=== PATIENT | female | born 2000 | race Caucasian/White ===

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

== ENCOUNTER 2022-12-23 15:14 | Outpatient (CLI) | payer OTHER, SELFPAY ==
[2022-12-25 13:02] LABS: NIL 0.03 IU/mL; Quantiferon TB Plus, 1T NEGATIVE (NEGATIVE); TB1-NIL <0.00 IU/mL
== END 2022-12-23 15:15 | disposition home or self-care (01) ==
LOC: ANHLAB 15:16
PROVIDERS: PCP Family Medicine; Visit Provider Nurse Practitioner Family
DX: Z11.1 Encounter for screening for respiratory tuberculosis (principal)
CPT/HCPCS: 36415; 86480

== ENCOUNTER 2023-01-29 19:59 | Emergency (ER) | payer OTHER, SELFPAY ==
--- NOTE | ~2023-01-29 | XR_ITS ---
EXAMINATION: XR ankle LT min 3V DATE: 01/29/2023 20:11 INDICATION: Left ankle inversion injury TECHNIQUE: Anteroposterior, oblique, mortise, and lateral views of the left ankle were obtained. COMPARISON: None. FINDINGS: Alignment is normal. No fracture. Joint spaces are well maintained. No ankle joint effusion. Mild s oft tissue swelling about the lateral malleolus IMPRESSION: 1. No osseous abnormality. Reviewed, dictated and finalized at location A. IMPRESSION: 1. No osseous abnormality.
[2023-01-29 20:03] VITALS: BP 153/85; PULSE 86; RESP 16; TEMP 36.6; O2SAT 100
--- NOTE | 2023-01-29 20:08 | ED.LOWEXIN ---
HPI - Extremity Injury (Lower) General Chief Complaint: Extremity Injury, Lower Stated Complaint: Left Ankle Injury Time Seen by Provider: 01/29/23 20:08 Source: patient, RN notes reviewed and old records reviewed Mode of arrival: ambulatory Limitations: no limitations History of Present Illness HPI Narrative: 22 year old female accompanied by friend presents to [facility] care at 1957 with complaints of exercising today at 1400 and rolled her ankle outward and she felt a snap in her ankle. Patient reports that she has applied an justin wrap and taken Ibuprofen but continues to have pain to ankle and increased discomfort with ambulation. Patient is concerned she is scheduled to work tomorrow and doesn't known if she could of broken something in he ankle MD complaint: ankle injury (lateral malleolus) Onset (ago): hour(s) (today at 1400) Type of Injury: inversion Place: home Severity: moderate Severity scale (1-10): 6 Exacerbating factors: weight bearing and movement Associated symptoms: snap/pop sensation, swelling and able to partially bear weight Treatments prior to arrival: cold therapy and other (justin and Ibuprofen) Related Data Home Medications Medication Instructions Recorded Confirmed No Home Medications 05/30/21 01/29/23 Allergies Allergy/AdvReac Type Severity Reaction Status Date / Time No Known Allergies Allergy Verified 01/29/23 20:08 Review of Systems Review of Systems: CONSTITUTIONAL: Denies fever, chills, or sweats. EYES: Denies visual changes, redness, or discharge. ENT: Denies rhinorrhea, congestion, sore throat, or otalgia. CARDIOVASCULAR: Denies chest pain, palpitations, or edema. RESPIRATORY: Denies cough or dyspnea. GASTROINTESTINAL: Denies abdominal pain, nausea, vomiting, or diarrhea. GENITOURINARY: Denies dysuria or hematuria. SKIN: Denies rash or itching. MUSCULOSKELETAL: Denies back pain,Positive for left lateral ankle joint pain, or myalgia. NEUROLOGIC: Denies headache, numbness, or weakness. PSYCHIATRIC: positive for anxiety or depression. All systems reviewed & are unremarkable except as noted in HPI and below PMFSH Past Medical History Medical History (Updated 01/30/23 @ 00:00 by Alexis Hughes) Anxiety Strep pharyngitis Surgical History Surgical History (Updated 01/29/23 @ 20:19 by Rachele Carranza NP) [place] teeth extracted Social History Social History (Updated 01/29/23 @ 20:20 by Rachele Carranza NP) Smoking status: Never smoker Occupation/Education: student Gender identity (if verbalized by the patient): Female Comments At time of signature, agree with nursing past medical, surgical, social and family history. There is no relevant family history pertinent to the presenting complaint Exam Narrative: GENERAL: Well-appearing, well-nourished, and in no acute distress. HEAD: Normocephalic, atraumatic. EYES: PERRLA and EOMI. ENT: Nares clear, no rhinorrhea or epistaxis. Mucous membranes moist. NECK: Supple. no lymphadenopathy CHEST: Clear to auscultation. No respiratory distress SAO2 100% on room air HEART: Regular rate and rhythm. No murmur heard. Normal peripheral pulses. ABDOMEN: Soft, nontender, nondistended, normal active bowel sounds. EXTREMITIES: Normal range of motion with discomfort with some lateral left ankle edema.painful ambulation and weight bearing. Patient has strong left pedal pulse, reports no tingling or numbness to her left foot, nail beds demetri briskly, foot warm and pink SKIN: Warm, dry, no rash. NEURO: No focal deficits. Alert and oriented x3. Course Course Emergency Course: Patient is aware of diagnosis, understands and agrees to treatment plan.? Anticipatory guidance given.? Patient agrees to follow-up as directed and is aware of reasons to seek care at the emergency department. Portions of this record may have been created with voice recognition software Level of Care: Express Care Visit Vital Signs Vital signs: Vital
== END 2023-01-29 20:26 | disposition home or self-care (01) ==
PROVIDERS: Emergency Provider Registered Nurse; PCP Family Medicine
DX: S93.402A Sprain of unspecified ligament of left ankle, initial encounter (principal); S96.912A Strain of unspecified muscle and tendon at ankle and foot level, left foot, initial encounter; X50.9XXA Other and unspecified overexertion or strenuous movements or postures, initial encounter
CPT/HCPCS: 73610; 99213; G0463

== ENCOUNTER 2024-07-03 17:40 | Emergency (ER) | payer OTHER, SELFPAY ==
[2024-07-03 18:45] VITALS: BP 111/84; PULSE 97; RESP 20; TEMP 37.4; O2SAT 100
--- NOTE | 2024-07-03 19:26 | ED.URI ---
HPI - URI/Sore Throat General Chief Complaint: Upper Respiratory Infection Stated Complaint: Flu Symptoms Source: patient, RN notes reviewed and old records reviewed Mode of arrival: ambulatory Limitations: no limitations History of Present Illness HPI Narrative: 24 year old female who presents to [facility] care with complaints of 3-4 days fatigue 2 days of productive cough,sore throat neck is swollen in the right posterior area and sore with no known fevers. Patient reports that she has been taking Tylenol cold and flu for her symptoms. 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 Patient reports history of strep throat. MD elicited complaint: cough and sore throat Pertinent past history: other (history of strep throat) Onset (ago): day(s) (2) Severity: mild Able to tolerate fluids by mouth: Yes Treatments prior to arrival: other (Tylenol cold and flu) Related Data Home Medications ?Medication ?Instructions ?Recorded ?Confirmed ?Last Taken ?Type citalopram 20 mg tablet 20 mg PO DAILY 07/03/24 07/03/24 Unknown History Allergies Allergy/AdvReac Type Severity Reaction Status Date / Time No Known Allergies Allergy Verified 07/03/24 18:17 Review of Systems Review of Systems: CONSTITUTIONAL: Reports some malaise, no chills, sweats, or fever. EYES: Denies visual changes, redness, or discharge. ENT: Reports rhinorrhea, congestion,no sinus pain, no otalgia and positive for sore throat. CARDIOVASCULAR: Denies chest pain, palpitations, or edema. RESPIRATORY: Reports productive cough.? Denies dyspnea. GASTROINTESTINAL: Denies abdominal pain, nausea, vomiting, diarrhea SKIN: Denies rash or itching. MUSCULOSKELETAL: Denies myalgia. NEUROLOGIC: Denies headache. All systems reviewed & are unremarkable except as noted in HPI and below PMFSH Past Medical History Medical History (Updated 07/05/24 @ 07:59 by Rachele Carranza NP) Anxiety Strep pharyngitis Surgical History Surgical History (Updated 01/29/23 @ 20:19 by Rachele Carranza NP) [place] teeth extracted Social History Social History (Updated 07/05/24 @ 07:52 by Rachele Carranza NP) Smoking status: Never smoker Additional occupation/education comments: RN Gender identity (if verbalized by the patient): Female Comments At time of signature, agree with nursing past medical, surgical, social and family history. There is no relevant family history pertinent to the presenting complaint Exam Narrative: GENERAL: Well-appearing, well-nourished, and in no acute distress. HEAD: Normocephalic EYES: PERRLA, conjunctivae clear ENT: Nares clear, turbinates edematous and erythematous, clear discharge. Mucous membranes moist. TM pearly munoz with dull light reflex bilaterally; no tragal tenderness. Oropharynx erythematous without lesions. Tonsils red not enlarged and without exudate, no drooling, no hoarseness, no trismus, uvula midline.some post nasal drainage noted, swollen lymph node to posterior neck region with some tenderness NECK: Supple. right posterior lymph node lymphadenopathy CHEST: Clear to auscultation, breath sounds equal. No wheezing, rhonchi, rales, or stridor. No respiratory distress, speaks in full sentences.productive cough SAO2 100% on room air HEART: Regular rate and rhythm. No murmur heard. SKIN: Warm, dry, no rash. NEURO: Alert and oriented x3. PSYCH: Normal mood and affect Course Course Emergency Course: Patient is aware of diagnosis, understands and agrees to treatment plan.? Anticipatory guidance given.? Patient agrees to follow-up as directed and is aware of reasons to seek care at the emergency department. Portions of this record may have been created with voice recognition software Level of Care: Express Care Visit Vital Signs Vital signs: Vital Signs Temperature 37.4 C 07/03/24 18:45 Pulse Rate 97 07/03/24 18:45 Respiratory Rate 20 07/03/24 18:45 Blood Pressure 111/84 07/03/24 18:45 Pulse Oximetry 100 07/03/24 18:45 Temperature 37.4 C 07/03/24 18:45 Pulse Rate 97 07/03/24 18:45 Respiratory Rate 20 07/03/24 18:45 Blood Pressure 111/84 07/03/24 18:45 Pulse Oximetry 100 07/03/24 18:45 Reviewed MDM - URI/Sore Throat MDM Narrative Medical decision making narrative: Differential diagnosis considered: Arreaga virus, strep pharyngitis, allergic rhinitis, upper respiratory tract infection, sinusitis, rhinosinusitis, nasopharyngitis. viral pharyngitis, otitis media, otitis externa, pneumonia, bronchitis, viral cough syndrome, viral syndrome, and influenza.? Exam findings show no acute concerns or changes; patient is non-toxic appearing and is in no distress.? Patient is appropriate for outpatient treatment and follow-up. Differential Diagnosis Differential diagnosis: Likely upper respiratory infection, viral infection, influenza, pharyngitis and other (strep pharyngitis, COVID, mono) Medical Records Attestation: I reviewed the patient's medical records. Lab Data Attestation: I reviewed the patient's lab results. Lab results narrative: [place] screen negative, Influenza A negative, Influenza B negative, COVID antigen negative,strep screen negative, strep culture sent Labs: Lab Results 07/03/24 07/03/24 Range/Units 19:42 19:55 POC Monoscreen Negative (Negative) POC Influenza A Ag Negative (Negative) POC Influenza B Ag Negative (Negative) POC SARS CoV-2 Ag Negative (Negative) POC Grp A Strep Screen Negative (Negative) Critical Care Time Critical Care Time Critical Care Time: No Discharge Plan Discharge Clinical Impression: Cough Qualifiers: Cough type: acute Qualified Code(s): R05.1 - Acute cough Upper respiratory infection Qualifiers: URI type: unspecified URI Qualified Code(s): J06.9 - Acute upper respiratory infection, unspecified Patient Disposition: Home, Self-Care Condition: Stable Instructions: Upper Respiratory Infection (ED), Acute Cough (ED) Additional Instructions: Increase fluids especially juices and water [id number] cough and cold medicine of your choice for your symptoms Zyrtec Claritin or Ana María daily may use plain Sudafed in a.m. Cough tablets as directed for cough-- Tylenol or ibuprofen for any fever pain Steroids as directed--take with food heat to the face 20-30 minutes 4-6 times a day for pain Salt water gargles, throat lozenges or throat sprays as desired strep mono flu and COVID all tested negative strep culture sent Patient Language: Hungarian Prescriptions: New prednisone 20 mg tablet 20 mg PO BID Qty: 10 0RF No Action citalopram 20 mg tablet 20 mg PO DAILY Follow-up/Referrals: PHYSICIAN,TRACK LAYER [Primary Care Provider] - Time of Disposition: 20:11 Quality [place] Coma Scale Eyes: Open Verbal: Oriented and Alert Motor: Follows Commands [place] Coma Total Score: 15
[2024-07-03 19:44] LABS: EDCOVIDSCREEN Negative (Negative); EDINFLUASCREEN Negative (Negative); EDINFLUBSCREEN Negative (Negative)
[2024-07-03 19:57] LABS: EDMONONEGPOS Negative (Negative); EDSTREPNEGPOS1 Negative (Negative)
== END 2024-07-03 20:13 | disposition home or self-care (01) ==
PROVIDERS: Emergency Provider Registered Nurse
DX: R05.1 Acute cough (principal); J06.9 Acute upper respiratory infection, unspecified; Z20.822 Contact with and (suspected) exposure to COVID-19; F41.9 Anxiety disorder, unspecified
CPT/HCPCS: 36416; 86308; 87081; 87426; 87804; 87880; 99213; G0463

== ENCOUNTER 2024-07-25 11:33 | Outpatient (CLI) | payer OTHER, SELFPAY | END 2024-07-25 11:34 | disposition home or self-care (01) | LOC: ANHIMG 11:34 | PROVIDERS: PCP Family Medicine; Visit Provider Nurse Practitioner Family | DX: M51.379 Other intervertebral disc degeneration, lumbosacral region without mention of lumbar back pain or lower extremity pain (principal) | CPT/HCPCS: 72114 ==

== ENCOUNTER 2024-08-29 13:37 | Emergency (ER) | payer OTHER, SELFPAY ==
--- NOTE | ~2024-08-29 | XR_ITS ---
XR hand LT 2V Ordering provider: Marquis Lozano MD History: . injury . Comparison: None. FINDINGS: BONES: No acute fracture or dislocation. JOINT SPACES: Well maintained. SOFT TISSUES: Unremarkable. IMPRESSION: No acute osseous abnormality left hand. Reviewed, dictated and finalized at location A.
[2024-08-29 13:40] VITALS: BP 135/75; PULSE 70; RESP 20; TEMP 36.3; O2SAT 100
--- NOTE | 2024-08-29 14:25 | ED.UPPEXIN ---
HPI - Extremity Injury (Upper) General Chief Complaint: Extremity Injury, Upper Stated Complaint: LEFT HAND INJURY Time Seen by Provider: 08/29/24 14:25 Focused HPI: This is a 24 year old female that presents to the ER for an injury to the left hand. Reports she was wheeling a stretcher and her hand got caught between the stretcher and the baby warmer. This happened just prior to arrival. GENERAL: Well-appearing, well-nourished, and in no acute distress. HEAD: Normocephalic, atraumatic. CHEST: Clear to auscultation. ?No respiratory distress. HEART: Regular rate and rhythm.? NEURO: ?Alert and oriented x3. Patient screened in triage and initial orders placed.? ?Additional care and disposition to be based upon?diagnostic testing and treatment. Related Data Allergies Allergy/AdvReac Type Severity Reaction Status Date / Time No Known Allergies Allergy Verified 08/29/24 13:43 Review of Systems Review of Systems: All systems reviewed & are unremarkable except as noted in HPI and below PMFSH Past Medical History Medical History (Updated 08/29/24 @ 14:30 by Melania To PA-C) Encounter for adjustment and management of other implanted devices Encounter for surveillance of other contraceptives Anxiety Strep pharyngitis Surgical History Surgical History [place] teeth extracted Family History Family History Mother Depression Father Depression Hypertension Grandparent Hypertension Heart disease Diabetes mellitus Social History Social History Smoking status: Never smoker Alcohol intake: never Substance use: never Substance use type: does not use Do You Feel Safe in your Home?: Yes Lack of Transportation: No Lack of Food: Never True Current Housing: I Have Housing Concerned About Future Housing: No Difficulty Paying Gas/Electric Bills: No Difficulty Paying for Meds: No Currently Unemployed: No Education: Associate Degree Difficulty w/ Childcare or Family Care: No Additional occupation/education comments: RN Gender identity (if verbalized by the patient): Female Exam Const: General: healthy appearing and no acute distress Nutritional Appearance: well nourished Skin: General skin exam: normal color Wounds: wounds noted (small superficial abrasions between the left 3rd and 4th fingers) Neuro: General: moves all extremities and no focal motor deficits Extrem: General: edema (mild swelling about the left 3rd and 4rd MCP joints. normal radial pulse) Other: normal sensation Course Vital Signs Vital signs: Vital Signs Temperature 97.3 F L 08/29/24 13:40 Pulse Rate 70 08/29/24 13:40 Respiratory Rate 20 08/29/24 13:40 Blood Pressure 135/75 08/29/24 13:40 Pulse Oximetry 100 08/29/24 13:40 Oxygen Delivery Room Air 08/29/24 13:40 Temperature 97.3 F L 08/29/24 13:40 Pulse Rate 70 08/29/24 13:40 Respiratory Rate 20 08/29/24 13:40 Blood Pressure 135/75 08/29/24 13:40 Pulse Oximetry 100 08/29/24 13:40 Oxygen Delivery Room Air 08/29/24 13:40 MDM - Extremity Injury (Upper) MDM Narrative Medical decision making narrative: Patient presents to the ER after left hand injury. She is neurovascularly intact. Left hand x-ray without acute osseous abnormalities. Very small superficial abrasions. Band aid in place. Instructed to ice, elevate. Over the counter pain medication as needed. She is to follow up with PCP. She was given warnings to return to the ER Differential Diagnosis Differential diagnosis: Likely finger sprain and other (dislocation, contusion) Imaging Data Radiologist's impression: ITS Impressions Hand X-Ray 08/29/24 14:06 IMPRESSION: No acute osseous abnormality left hand. Critical Care Time Critical Care Time Critical Care Time: No Discharge Plan Discharge Clinical Impression: Contusion of left hand Qualifiers: Encounter type: initial encounter Qualified Code(s): S60.222A - Contusion of left hand, initial encounter Patient Disposition: Home Condition: Stable Instructions: Contusion in Adults (ED) Additional Instructions: Return to the ER if you experience fever, redness and swelling of your arm, weakness, numbness, or any other symptoms that are concerning to you Rest. Elevate. Ice to the area. Over the counter pain medication as needed Follow up with your primary care doctor Patient Language: Canadian Follow-up/Referrals: Brian Somers MD [Primary Care Provider] -
--- OUTSIDE RECORDS SUMMARY | 2024-08-29 15:00 | XMS_ITS | Clinical Summary ---
Author Organization [facility] Address [address] [place] [address] Care Team Providers Care Rehab Care Assistant Name Role Phone Marisol Bradley MD Primary Care Provider [phone] Source Comments [facility],non-owned Affiliates and Associated Physician Practices is amultiple site organization consisting of ambulatory clinics and hospital sitesin [place], [place], [place] and [place]. This disclosure is being madepursuant to the Care Everywhere program and may not contain all information available regarding this patient. Last updated 18.[facility] Allergies No known active allergies Medications Be aware that medications may not be up to date on this document. Always verify current medications with the patient. No known medications Social History Tobacco Use Types Packs/Day Years Used Date Smoking Tobacco: Never Assessed Sex and Gender Information Value Date Recorded Sex Assigned at Not on file Gender Identity Not on file Sexual Orientation Not on file Last Filed Vital Signs Vital Sign Reading Time Taken Comments Blood Pressure 106/60 08/03/2016 11:41 AM CDT Pulse 105 08/03/2016 11:41 AM CDT Temperature 37.3 C (99.2 F) 08/03/2016 11:41 AM CDT Respiratory Rate - - Oxygen Saturation - - Inhaled Oxygen Concentration - - Weight 49.9 kg (110 lb) 08/03/2016 11:41 AM CDT Height 163.8 cm (5' 4.5 ) 08/03/2016 11:41 AM CD T Body Mass Index 18.59 08/03/2016 11:41 AM CDT Plan of Treatment Health Maintenance Due Date Last Done Comments PAP SMEAR 2002 HIV SCREENING 2017 HPV VACCINE (1 - 3-dose series) 2017 CHLAMYDIA/GONORRHEA SCREENING 2018 MENINGOCOCCAL (Group B) VACC INE SHARED DECISION-MAKING (1 of 2 - Standard) 2018 HEPATITIS C SCREENING 03/31/2020 DTAP/TDAP/TD VACCINES (1 - Tdap) 2021 HEPATITIS B VACCINE (1 of 3 - 19+ 3-dose series) 2021 COVID-19 VACCINE (1 - 2023-2 5 season) 2024 DEPRESSION SCREENING 05/24/2024 INFLUENZA VACCINE (Season Ended) 2025 ZOSTER VACCINE (1 of 2) 2052 HIB VACCINE Aged Out No longer eligi ble based on patient's age to complete this topic MENINGOCOCCAL GROUPS A/C/Y/W VACCINE Aged Out No longer eligible b ased on patient's age to complete this topic PNEUMOCOCCAL VACCINE Aged Out No long er eligible based on patient's age to complete this topic Care Teams Rehab Care Assistant Relationship Specialty Start Date End Date Marisol Bradley MD [address] [id number] PCP - General Pediatrics 08/03/16
--- OUTSIDE RECORDS SUMMARY | 2024-08-29 15:00 | XMS_ITS | Referral Summary ---
Author Organization [facility] [address] [facility] lt Address [address] [place] [address] Care Team Providers Care Client Resolution Specialist Name Role Phone Reynaldo Carlson MD Primary Care Provider [phone] Encounters Date Type Department Care Team Description 07/18/2024 1:56 PM ASSISTANT PROFESSOR OF ENGLISH - 07/18/2024 11:59 PM ASSISTANT PROFESSOR OF ENGLISH Hospital Encounter [facility] [address] [place] [address] Low back pain, unspecified back pain laterality, unspecified chronicity, unspecified whether sciatica present Discharge Disposition: Discharge to home or self care from Last 3 Months Allergies No known active allergies Medications etonogestreL (NEXPLANON) 68 mg implantIndications : Contraception 1 each (68 mg total) Nexplanon inserted 05-14-2021. Paid by insurance. Lot # [id number] exp 08-31-2023 Active citalopram (CeleXA) 20 mg tablet Take 1 tablet (20 mg total) by mouth daily 90 tablet 4 4 02/24/20 25 Active miSOPROStoL (CYTOTEC) 200 mcg tablet Insert 1 tablet vaginally at bedtime two nights prior to procedure. Insert second tablet tablet vaginally the night before procedure 2 tablet 4 Active Active Problems Problem Noted Date Diagnosed Date Contraceptive management 03/14/2024 Assessment & Plan (03/14/2024 7:16 AM CDT): Discussed all control options available to patient at visit. Patient was counseled on benefits as well as side effects and risks of each method. 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 Device is due to in April of this year. She is interested in a hormonal IUD. Literature on the Liletta and Kyleena IUD given. Plan to order device after results of pelvic ultrasound reviewed. Breakthrough bleeding on Nexplanon 03/14/2024 Overview (03/14/2024): Continues to be problematic. Desires to have Nexplanon removed and start a new BCM at that time. Will call patient to schedule an upcoming appt for removal. Assessment & Plan (03/14/2024 7:20 AM CDT): Continues to be problematic. She is not interested in oral hormones to help regulated BTB at this time. Informed patient her most recent episode of irregular bleeding may or may not be related to the presence of an ovarian cyst. Regardless, patient desires to have Nexplanon removed and start a new BCM at that time. Will call patient to schedule an upcoming appointment for removal. Physical exam, annual 02/24/2024 Assessment & Plan (02/24/2024 11:29 AM CDT): Preventive exam; reviewed recommended preventive screenings and vaccinations. Encourage annual flu vaccine. Wear sunscreen/protective clothing when outdoors. 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 Will increase citalopram from 10 mg to 20 mg daily. No SI. Encouraged CBT and stress lowering technique. Will monitor response. Pyelonephritis 02/24/2024 Assessment & Plan (02/24/2024 11:29 AM CDT): Symptoms improving. Patient is taking medication twice daily as prescribed, has 1 week left of Keflex. Received IV Rocephin in the ED on 02/20. She denies any fevers, chills or nausea. Urinary symptoms have resolved. Constipation 02/24/2024 Assessment & Plan (02/24/2024 11:30 AM CDT): Took MiraLax x3 days. Encouraged daily use of MiraLax for now. Continue pushing fluids. Can take extra-strength Gas-X for bloating/gas cramping. Encouraged adequate fiber intake aim for 25 g of fiber/day, recommend gradually increasing fiber intake. Well woman exam 06/24/2022 Overview (06/24/2022): Lab: Pap: No recent labs. Clara: Colonoscopy: BMD: Gardasil:chart says 05/26, she will check her vaccine card. Assessment & Plan (06/24/2022 2:59 PM ASSISTANT PROFESSOR OF ENGLISH): Declines STD rto next year for complete exam. BMI 23.0-23.9, adult 01/15/2021 Assessment & Plan (02/24/2024 11:30 AM CDT): BMI is appropriate for patient Assessment & Plan (01/15/2021 12:25 PM CDT): Discussed healthy diet and importance of regular physical activity. BMI is acceptable for this patient. control counseling 01/14/2021 Overview (05/14/2021): nexplanon 04/2021 Due out 04/2024 Assessment & Plan (06/24/2022 2:56 PM ASSISTANT PROFESSOR OF ENGLISH): Some irregular bleeding Will follow. Assessment & Plan (06/19/2021 1:18 PM ASSISTANT PROFESSOR OF ENGLISH): Arm is well healed She will follow the bleeding for another week or so and call me with the results. Assessment & Plan (05/14/2021 12:08 PM ASSISTANT PROFESSOR OF ENGLISH): The patient comes today desiring contraception. The options were discussed with her including risks benefits and alternatives. The patient would like to have Nexplanon placed. We discussed that the Nexplanon is good for 3 years and after that will need to be removed. We discussed the most common side effect is irregular bleeding lasting for approximately 4-6 months. During that time there is additional treatment that is available to help with the bleeding. The patient was encouraged to call if she has any irregular bleeding. Patient voices understanding and agrees to the procedure. The nexplanon was placed without difficulty. She will be asked to return to the office in 2 weeks for arm check. Assessment & Plan (03/03/2021 2:19 PM CDT): The patient comes today desiring contraception. The options were discussed with her including risks benefits and alternatives. The patient would like to have Nexplanon placed. We discussed that the Nexplanon is good for 3 years and after that will need to be removed. We discussed the most common side effect is irregular bleeding lasting for approximately 4-6 months. During that time there is additional treatment that is available to help with the bleeding. The patient was encouraged to call if she has any irregular bleeding. She was asked to call in 2 weeks if she has not heard from us about placement. I would like to put it in on the first day of her period Assessment & Plan (01/15/2021 12:21 PM CDT): Patient prefers IUD contraception. Discussed various differences in IUD hormonal vs. Copper. Patient with heavy periods and would likely do well with hormonal IUD. Aware that IUD does not protect against STD's. Given referral today to SHEET METAL HELPER. LMP 01/12/21, will restart OCP in the interim. Need for meningococcal vaccination 08/01/2019 Assessment & Plan (08/01/2019 9:21 AM CDT): menactra vaccine given today. Discussed possible tenderness/redness at injection site. Annual physical exam 08/01/2019 Assessment & Plan (01/15/2021 12:23 PM CDT): Preventative exam; reviewed preventive screenings and vaccinations. Recommended screening for cervical cancers age 21. Continue avoiding tobacco, alcohol and illicit drugs. Continue practicing safe sex. Reviewed sunscreen/protective clothing when outdoors and seatbelt use. Assessment & Plan (08/01/2019 9:22 AM CDT): Preventive exam; reviewed recommended preventive screenings and vaccinations. Meningococcal vaccine given today. Encouraged annual flu vaccine. Wear sunscreen/protective clothing when outdoors. Avoid tobacco, alcohol, and illicit drugs. Always wear a seatbelt. Reviewed safe sex practices. Refused influenza vaccine 06/14/2018 Assessment & Plan (07/31/2019 5:45 PM CDT): Discussed and the patient refuses immunization today. Educated regarding the need to vaccinate for personal protection and to limit the viruses in the community to protect those most vulnerable. Hammer toe 03/13/2014 Resolved Problems Problem Noted Date Diagnosed Date Resolved Date BMI 23.0-23.9, adult 08/01/2019 021 Assessment & Plan (08/01/2019 9:21 AM CDT): Healthy eating at home & exercises every other day with father at [place]. Encounter for control pills maintenance 07/31/19 20 05/14/2021 Assessment & Plan (08/01/2019 9:21 AM CDT): Does not smoke, no history of DVT or Pe. Switched to lo loestrin to see if helpful w/decreasing anxiety. Reviewed medication side effects & scheduling. Reviewed need to take at same time every day; decreased effectiveness with taking antibiotics. Reviewed red flags. Reviewed safe sex, need for condoms to prevent STDs. Immunizations Immunization Administration Dates Next Due DTaP 2002 DTaP / Hep B / IPV 2002 DTaP, Unspecified 08/09/2007,09/21/2003,08/09/19 03 HPV, Quadrivalent 08/31/2014 Hep A, Pediatric 08/31/2014,08/04/2013 Hep B Vaccine 07/22/2022 Hep B, Adolescent or Pediatric 2002,2001 HiB 09/21/2003, 3,2002,06/05 IPV 08/09/2007, 4,2002,06/05 Influenza LAIV (Nasal) 02/02/2012 Influenza, Quadrivalent, Akua l Culture-based MDCK, Preservative Free, Antibiotic Free, Intramuscular 03/04/2023 Influenza, Quadrivalent, Spl it, Preservative Free, Intramuscular 02/28/2016 Influenza, Trivalent, Cell Culture-based MDCK, Preservative Free, Antibiotic Free, Intramuscular 03/04/2023 Influenza, Unspecified 02/24/2024(Deferr ed: Patient Refused),02/21/2023(Deferred: Patient Refused),01/07/2023(Deferred: Patient Refused),02/21/2022(Deferred: Patient Refused),01/22/2022(Deferred: Patient Refused),01/14/2021(Deferred: Patient Refused),05/24/2020(Deferred: Patient Refused),07/22/2019,06/14/2018(Deferre d: Patient Refused),05/24/2018(Deferred: Patient Refused),05/25/2017(Deferred: Patient Refused),02/21/2017 MMR 08/09/2007,09/21/2003 Meningococcal Conjugate (Menveo) 08/01/2019,07/22 Pneumococcal Conjugate 7-Valent 2002,07/09,2002 Tdap 08/04/2013 Varicella 08/09/2007,04/07/2004 Social History Tobacco Use Types Packs/Day Years Used Date Smoking Tobacco: Never Smokeless Tobacco: Never Tobacco Cessation:Counseling Given: Not Answered Alcohol Use Standard Drinks/Week Comments Never 0 (1 standard drink = 0.6 oz pur e alcohol) Humiliation, Afraid, Rape, and Kick questionnair e Answer Date Recorded Within the last year, have y ou been afraid of your partner or ex-partner? No 06/24/2022 Within the last year, have y ou been humiliated or emotionally abused in other ways by your partner or ex-partner? No Within the last year, have y ou been kicked, hit, slapped, or otherwise physically hurt by your partner or ex-partner? No 06/24/2022 Within the last year, have y ou been raped or forced to have any kind of sexual activity by your partner or ex-partner? No 06/24/2022 AUDIT-C Answer Date Recorded Q1: How often do you have a drink containing alc ohol? Monthly or less 03/03/2021 Average Number of Drinks Not on file 021 Frequency of Binge Drinking Not on file 02/21 PHQ-2 Answer Date Recorded PHQ-2 Total Score (If total score is 3 or more points, staff should administer the PHQ-9) 1 02/24/2024 Comments No Sex and Gender Information Value Date Recorded Sex Assigned at Not on file Legal Sex Female 11:09 AM ASSISTANT PROFESSOR OF ENGLISH Gender Identity Not on file Sexual Orientation Not on file Occupation Industry Job Start Date Job End Date student Not on file Not on file Not on file Last Filed Vital Signs Vital Sign Reading Time Taken Comments Blood Pressure 116/80 05/09/2024 3:56 PM ASSISTANT PROFESSOR OF ENGLISH Pulse 70 02/24/2024 10:51 AM CDT Temperature 36.6 C (97.9 F) 02/24/2024 10:51 AM CDT Respiratory Rate 16 01/07/2023 9:42 AM CDT Oxygen Saturation 99% 02/24/2024 10: 51 AM CDT Inhaled Oxygen Concentration - - Weight 65.6 kg (144 lb 11.2 oz) 05/09/2024 3:56 PM ASSISTANT PROFESSOR OF ENGLISH Height 165.1 cm (5' 5 ) 05/09/2024 3:56 PM ASSISTANT PROFESSOR OF ENGLISH Body Mass Index 24.08 05/09/2024 3:56 PM ASSISTANT PROFESSOR OF ENGLISH Plan of Treatment Not on file Procedures Procedure Name Priority Date/Time Associated Diagnosis Comments MRI LUMBAR SPINE WO CONTRAST Schedule Routine, Read Routine (OP Routine) 07/18/2024 3:43 PM ASSISTANT PROFESSOR OF ENGLISH Low back pain, unspecified back pain laterality, unspecified chronicity, unspecified whether sciatica present N. GONORRHOEAE/C. TRACHOMATIS AMPLIFICATION Routine 02/24/2024 4:00 PM CDT Routine screening for STI (sexually transmitted infection) PAP, REFLEX HPV Routine 07/01/2023 2:55 PM ASSISTANT PROFESSOR OF ENGLISH Well woman exam from Last 3 Months or Most Recently Relevant to Health Maintenance Results * MRI Lumbar Spine WO Contrast (07/18/2024 3:43 PM ASSISTANT PROFESSOR OF ENGLISH) Anatomical Region Laterality Modality Spine N/A Magnetic Resonan ce 07/18/2024 4:11 PM ASSISTANT PROFESSOR OF ENGLISH Impressions 07/18/2024 9:57 PM ASSISTANT PROFESSOR OF ENGLISH Moderate left central protrusion and annular fissure at L5-S1 with mild mass effect on the left S1 root. Electronically signed by: Brittny Muniz M.D. Narrative 07/18/2024 9:57 PM ASSISTANT PROFESSOR OF ENGLISH Examination: MRI LUMBAR SPINE WO CONTRAST Date: 07/18/2024 2:30 PM Clinical History: LOW BACK PAIN Technique: MRI lumbar spine obtained using multiplanar multisequence images without contrast. Comparison:None. Findings: Lumbar vertebrae are normal in height, alignment and marrow signal except for slight retrolisthesis of L5 on S1. There is mild moderate anterior disc space narrowing at L5-S1 with type I endplate change. The conus ends at L1-2.The visualized distal cord is unremarkable. L1-L2: The disc and facets are not remarkable. There is no central, lateral recess or foraminal stenosis. L2-L3: The disc and facets are unremarkable. There is no central, lateral recess or foraminal stenosis. L3-L4: The disc and facets are not remarkable. There is no central, lateral recess or foraminal stenosis L4-L5: Mild disc bulge and facet joint T2 hyperintensity is seen with ventral sac flattening but there is no central , lateral recess or foraminal stenosis L5-S1: Disc bulging and superimposed moderate left central protrusion with annular fissure and slight inferior migration is seen. There is mild sac effacement and slight posterolateral displacement of the left S1 root. Mild facet arthropathy is seen but there is no central, lateral recess or foraminal stenosis. Procedure Note Brtitny Muniz MD - 07/18/2024 Examination: MRI LUMBAR SPINE WO CONTRAST Date: 07/18/2024 2:30 PM Clinical History: LOW BACK PAIN Technique: MRI lumbar spine obtained using multiplanar multisequence images without contrast. Comparison:None. Findings: Lumbar vertebrae are normal in height, alignment and marrow signal except for slight retrolisthesis of L5 on S1. There is mild moderate anterior disc space narrowing at L5-S1 with type I endplate change. The conus ends at L1-2.The visualized distal cord is unremarkable. L1-L2: The disc and facets are not remarkable. There is no central, lateral recess or foraminal stenosis. L2-L3: The disc and facets are unremarkable. There is no central, lateral recess or foraminal stenosis. L3-L4: The disc and facets are not remarkable. There is no central, lateral recess or foraminal stenosis L4-L5: Mild disc bulge and facet joint T2 hyperintensity is seen with ventral sac flattening but there is no central , lateral recess or foraminal stenosis L5-S1: Disc bulging and superimposed moderate left central protrusion with annular fissure and slight inferior migration is seen. There is mild sac effacement and slight posterolateral displacement of the left S1 root. Mild facet arthropathy is seen but there is no central, lateral recess or foraminal stenosis. IMPRESSION: Moderate left central protrusion and annular fissure at L5-S1 with mild mass effect on the left S1 root. Electronically signed by: Brittny Muniz M.D. us Not In File Miscellaneous IMG MRI PROCEDURES Fin al Result * N. gonorrhoeae/C. trachomatis Amplification Urine (02/24/2024 4:00 PM CDT) C. trachomatis Not Detected [facility] Comment:Testing performed by : [facility], [address] [facility] [place]., [address] N. gonorrhoeae Not Detected [facility] Comment: Interpretive Data This assay detects Chlamydia trachomatis and Neisseria gonorrhoeae by nucleic acid amplification testing (NAAT). This assay has been cleared by the [place] Food and Drug administration. The performance characteristics of this test have been verified by the [facility] Molecular Infectious Disease laboratory. The performance characteristics of this test have not been evaluated in individuals less than 14 years of age. Current Interpretive Data was last revised on 2023. Testing performed by: [facility], [address] [facility] [place]., [address] Urine (None) 02/24/2024 4:00 PM CDT 02/25/2024 1:35 PM CDT Petra Castillo GROOMING SALON MANAGER LAB MICROBIOLOGY - GENERAL ORDERABLES Final Result Performing Organization Address City/[facility]/ZIP Co de Phone Number DYANA KAY [address] Department [place] [address] [facility] * Pap, reflex HPV (07/01/2023 2:55 PM ASSISTANT PROFESSOR OF ENGLISH) CLINICAL INFORMATION: Mya Ornelas Comment:None given LMP Mya Ornelas Comment:NONE GIVEN Previous Pap Mya Ornelas Comment:NONE GIVEN Prev. Bx Mya Ornelas Comment:NONE GIVEN SOURCE: Mya Ornelas Comment:Cervix, Endocervix Pap, specimen adequacy Mya Ornelas Comment: Satisfactory for evaluation. Endocervical/transformation zone component present. Age and/or menstrual status not provided HPV interp May Ornelas Comment: Cytology Results: Negative for intraepithelial lesion or malignancy. COMMENTS Mya Ornelas Comment: This Pap test has been evaluated with computer assisted technology. Assembly Line Upholsterer [facility] [address] Manjeet Ornelas Comment: BES, CT(ASCP) CT screening location: [place] [address] [place] [address] Comment Mya Ornelas Comment: EXPLANATORY NOTE: The Pap is a screening test for cervical cancer. It is not a diagnostic test and is subject to false negative and false positive results. It is most reliable when a satisfactory sample, regularly obtained, is submitted with relevant clinical findings and history, and when the Pap result is evaluated along with historic and current clinical information. Thin prep 07/01/2023 2:55 PM ASSISTANT PROFESSOR OF ENGLISH 07/02/2023 8:22 AM ASSISTANT PROFESSOR OF ENGLISH Almaz Clark GROOMING SALON MANAGER LAB CYTOLOGY ORDERABLES Fin al Result Performing Organization Address [facility]/ZIP Co de Phone Number MYA [facility] [address] [phone] from Last 3 Months or Most Recently Relevant to Health Maintenance Insurance [facility] Care Teams Client Resolution Specialist Relationship Specialty Start Date End Date Reynaldo Carlson MD [address] [place] [id number] PCP - General Family Medicine 04/21/18
--- OUTSIDE RECORDS SUMMARY | 2024-08-29 15:00 | XMS_ITS | Clinical Summary ---
Author Organization [facility] [place] [facility] lt Address [address] [place] [address] Care Team Providers Care Purchasing Director Name Role Phone Reynaldo Carlson MD Primary Care Provider [phone] Allergies No known active allergies Medications etonogestreL (NEXPLANON) 68 mg implantIndications : Contraception 1 each (68 mg total) Nexplanon inserted 05-14-2021. Paid by insurance. Lot # [id number] exp 08-31-2023 Active citalopram (CeleXA) 20 mg [...] Wear sunscreen/protective clothing when outdoors. -following with warehouse lead annually -STD testing ordered today Generalized anxiety [...] card. Assessment & Plan (06/24/2022 2:59 PM PRODUCTION TEAM MANAGER): Declines STD rto next year for complete exam. BMI 23.0-23.9, adult 01/15/2021 Assessment & Plan (02/24/2024 11:30 AM CDT): BMI is appropriate for patient Assessment & Plan (01/15/2021 12:25 PM CDT): Discussed healthy diet and importance of regular physical activity. BMI is acceptable for this patient. control counseling 01/14/2021 Overview (05/14/2021): nexplanon 04/2021 Due out 04/2024 Assessment & Plan (06/24/2022 2:56 PM PRODUCTION TEAM MANAGER): Some irregular bleeding Will follow. Assessment & Plan (06/19/2021 1:18 PM PRODUCTION TEAM MANAGER): Arm is well healed She will follow the bleeding for another week or so and call me with the results. Assessment & Plan (05/14/2021 12:08 PM PRODUCTION TEAM MANAGER): The patient comes today desiring contraception. The [...] protect against STD's. Given referral today to GAS APPLIANCE ADJUSTER. LMP 01/12/21, will restart OCP in the [...] the community to protect those most vulnerable. Bobby galdamez 03/13/2014 Resolved Problems Problem Noted Date Diagnosed Date Resolved Date BMI 23.0-23.9, adult 08/01/2019 021 Assessment & Plan (08/01/2019 9:21 AM CDT): Healthy eating at home & exercises every other day with father at [place]. Encounter for control pills maintenance 07/31/19 20 [...] sex, need for condoms to prevent STDs. Encounters Date Type Department Care Team Description 07/18/2024 1:56 PM PRODUCTION TEAM MANAGER - 07/18/2024 11:59 PM PRODUCTION TEAM MANAGER Hospital Encounter 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 She has her feeling back now. Family History Medical History Relation Name Comments Hypertension Father Diabetes Other 2 Family history of diabetes mellitus - Relation: Grandmother (Added by TW Conv) Relation Name Status Comments Brother Bony Alive Father Alive Mother Alive Other 1 Other no colon, breas t or warehouse lead cancer no change 06/24/22 cmt Other 2 Sister Samy Alive Social History Tobacco Use Types Packs/Day Years [...] Average Number of Drinks Not on file Frequency of Binge Drinking Not on file 02/21 PHQ-2 Answer Date Recorded PHQ-2 Total Score (If total score is 3 or more points, staff should administer the PHQ-9) 1 02/24/2024 Comments No Sex and Gender Information Value Date Recorded Sex Assigned at Not on file Legal Sex Female 11:09 AM PRODUCTION TEAM MANAGER Gender Identity Not on file Sexual Orientation Not on file Occupation Industry Job Start Date Job End Date student Not on file Not on file Not on file Obstetrics History Para Term AB IAB SAB Ectopic Multiple Livin g Live Births 0 0 0 0 0 0 0 0 0 0 0 Last Filed Vital Signs Vital Sign Reading Time Taken Comments Blood Pressure 116/80 05/09/2024 3:56 PM PRODUCTION TEAM MANAGER Pulse 70 02/24/2024 10:51 AM CDT Temperature 36.6 C (97.9 F) 02/24/2024 10:51 AM CDT Respiratory Rate 16 01/07/2023 9:42 AM CDT Oxygen Saturation 99% 02/24/2024 10: 51 AM CDT Inhaled Oxygen Concentration - - Weight 65.6 kg (144 lb 11.2 oz) 05/09/2024 3:56 PM PRODUCTION TEAM MANAGER Height 165.1 cm (5' 5 ) 05/09/2024 3:56 PM PRODUCTION TEAM MANAGER Body Mass Index 24.08 05/09/2024 3:56 PM PRODUCTION TEAM MANAGER Plan of Treatment Health Maintenance Due Date Last Done Comments Hepatitis C Screening 2002 HPV Vaccines (2 - 2-dose series) 03/02/2015 08/31/2014 Meningococcal B Vaccine (1 of 2 - Standard) 2018 DTaP/Tdap/Td Vaccine (7 - Td or Tdap) 08/05/2023 08/04/2013, 08/09/2007, 09/21/2003, Additional history exists Covid-19 Vaccine ( season) 2024 05/26/2021, 09/16/2020, 08/23/2020 Cervical Cancer Screening 07/01/2024 07/01/2023 Chlamydia and Gonorrhea (GC/CT) Screening 02/23/2025 02/24/2024, 06/24/2022, 03/03/2021 Depression Screening 02/23/2025 02/24/2024, 07/01/2023, 01/07/2023, Additional history exists Regular Well Visit/Exam 18-64 02/23/2025 02/24/2024, 07/01/2023, 01/07/2023, Additional history exists Pneumococcal vaccine <65 Aged Out 003, 2002, 2002 No longer eligible based on patient's age to complete this topic Varicella Vaccines Completed 08/09/2007, 04/07/2004 Hepatitis B Screening Completed 07/22/2022 , 2002, 2002, Additional history exists Influenza Vaccine Discontinued 03/04/2023, , 07/22/2019, Additional history exists Procedures Procedure Name Priority Date/Time Associated Diagnosis Comments MRI LUMBAR SPINE WO CONTRAST Schedule Routine, Read Routine (OP Routine) 07/18/2024 3:43 PM PRODUCTION TEAM MANAGER Low back pain, unspecified back pain laterality, unspecified chronicity, unspecified whether sciatica present N. GONORRHOEAE/C. TRACHOMATIS AMPLIFICATION Routine 02/24/2024 4:00 PM CDT Routine screening for STI (sexually transmitted infection) PAP, REFLEX HPV Routine 07/01/2023 2:55 PM PRODUCTION TEAM MANAGER Well woman exam from Last 3 Months or Most Recently Relevant to Health Maintenance Results * MRI Lumbar Spine WO Contrast (07/18/2024 3:43 PM PRODUCTION TEAM MANAGER) Anatomical Region Laterality Modality Spine N/A Magnetic Resonan ce 07/18/2024 4:11 PM PRODUCTION TEAM MANAGER Impressions 07/18/2024 9:57 PM PRODUCTION TEAM MANAGER Moderate left central protrusion and annular fissure at L5-S1 with mild mass effect on the left S1 root. Electronically signed by: Brittny Muniz M.D. Narrative 07/18/2024 9:57 PM PRODUCTION TEAM MANAGER Examination: MRI LUMBAR SPINE WO CONTRAST Date: [...] lateral recess or foraminal stenosis. Procedure Note Brittny Muniz MD - 07/18/2024 Examination: MRI LUMBAR [...] 4:00 PM CDT) C. trachomatis Not Detected [facility] Comment:Testing performed by : [facility], [address] [place] [address] N. gonorrhoeae Not Detected DYANA KAY Comment: Interpretive Data This assay detects Chlamydia trachomatis and Neisseria gonorrhoeae by nucleic acid amplification testing (NAAT). This assay has been cleared by the [place] Food and Drug administration. The performance characteristics of this test have been verified by the [facility] Molecular Infectious Disease laboratory. The performance characteristics of this test have not been evaluated in individuals less than 14 years of age. Current Interpretive Data was last revised on 2023. Testing performed by: [facility], [address] [place] [address] Urine (None) 02/24/2024 4:00 PM CDT 02/25/2024 1:35 PM CDT us Petra Castillo REFUND SPECIALIST LAB MICROBIOLOGY - GENERAL ORDERABLES Final Result DYANA [id number] Department of Laboratories [place], [place] [id number] [facility] * Pap, reflex HPV (07/01/2023 2:55 PM PRODUCTION TEAM MANAGER) CLINICAL INFORMATION: Lisandra [employer] Ornelas Comment:None given LMP Lisandra SeraCharlie Ornelas Comment:NONE GIVEN Previous Pap Lisandra [facility] Ornelas Comment:NONE GIVEN Prev. Bx Lisandra SeraCharlie Ornelas Comment:NONE GIVEN SOURCE: Lisandra [employer] Ornelas Comment:Cervix, Endocervix Pap, specimen adequacy Lisandra [employer] Ornelas Comment: Satisfactory for evaluation. Endocervical/transformation zone component present. Age and/or menstrual status not provided HPV interp Lisandra Ornelas Comment: Cytology Results: Negative for intraepithelial lesion or malignancy. COMMENTS Lisandra [employer] Ornelas Comment: This Pap test has been evaluated with computer assisted technology. Hand Cooper Helper [facility] [employer] Ornelas Comment: BES, CT(ASCP) CT screening location: [place] [address] [place] [address] Comment Lisandra [employer]Charlie Ornelas Comment: EXPLANATORY NOTE: The Pap is [...] clinical information. Thin prep 07/01/2023 2:55 PM PRODUCTION TEAM MANAGER 07/02/2023 8:22 AM PRODUCTION TEAM MANAGER Almaz Clark REFUND SPECIALIST LAB CYTOLOGY ORDERABLES Fin al Result Performing Organization Address City/[facility]/ZIP Co de Phone Number [facility] [address] [place] [address] from Last 3 Months or Most Recently Relevant to Health Maintenance Insurance [facility] Care Teams Purchasing Director Relationship Specialty Start Date End Date Reynaldo Carlson MD [address] [place] [address] PCP - General Family Medicine 04/21/18
--- OUTSIDE RECORDS SUMMARY | 2024-08-29 16:08 | XMS_ITS | Clinical Summary ---
Author Organization [facility] [place] [address] [facility] lt Address [address] [place] [address] Care Team Providers Care Centrifuge Separator Operator Name Role Phone Reynaldo Carlson MD Primary Care Provider [phone] Allergies No known active allergies Medications etonogestreL (NEXPLANON) 68 mg implantIndications : Contraception 1 each (68 mg total) Nexplanon inserted 05-14-2021. Paid by insurance. Lot # [id number] exp 08-31-2023 Active citalopram (CeleXA) 20 mg [...] Wear sunscreen/protective clothing when outdoors. -following with tile layer helper annually -STD testing ordered today Generalized anxiety [...] card. Assessment & Plan (06/24/2022 2:59 PM HOSPITAL AIDES AND ASSISTANTS TEACHER): Declines STD rto next year for complete exam. BMI 23.0-23.9, adult 01/15/2021 Assessment & Plan (02/24/2024 11:30 AM CDT): BMI is appropriate for patient Assessment & Plan (01/15/2021 12:25 PM CDT): Discussed healthy diet and importance of regular physical activity. BMI is acceptable for this patient. control counseling 01/14/2021 Overview (05/14/2021): nexplanon 04/2021 Due out 04/2024 Assessment & Plan (06/24/2022 2:56 PM HOSPITAL AIDES AND ASSISTANTS TEACHER): Some irregular bleeding Will follow. Assessment & Plan (06/19/2021 1:18 PM HOSPITAL AIDES AND ASSISTANTS TEACHER): Arm is well healed She will follow the bleeding for another week or so and call me with the results. Assessment & Plan (05/14/2021 12:08 PM HOSPITAL AIDES AND ASSISTANTS TEACHER): The patient comes today desiring contraception. The [...] protect against STD's. Given referral today to PLASTER LATHER. LMP 01/12/21, will restart OCP in the [...] exercises every other day with father at [place]. Encounter for control pills maintenance 07/31/19 20 [...] Department Care Team Description 07/18/2024 1:56 PM HOSPITAL AIDES AND ASSISTANTS TEACHER - 07/18/2024 11:59 PM HOSPITAL AIDES AND ASSISTANTS TEACHER Hospital Encounter [facility] Imaging and Radiology [address] [place] [address] Low back pain, unspecified back pain laterality, [...] 1 Other no colon, breas t or tile layer helper cancer no change 06/24/22 cmt Other 2 [...] on file Legal Sex Female 11:09 AM HOSPITAL AIDES AND ASSISTANTS TEACHER Gender Identity Not on file Sexual Orientation [...] Comments Blood Pressure 116/80 05/09/2024 3:56 PM HOSPITAL AIDES AND ASSISTANTS TEACHER Pulse 70 02/24/2024 10:51 AM CDT Temperature 36.6 C (97.9 F) 02/24/2024 10:51 AM CDT Respiratory Rate 16 01/07/2023 9:42 AM CDT Oxygen Saturation 99% 02/24/2024 10: 51 AM CDT Inhaled Oxygen Concentration - - Weight 65.6 kg (144 lb 11.2 oz) 05/09/2024 3:56 PM HOSPITAL AIDES AND ASSISTANTS TEACHER Height 165.1 cm (5' 5 ) 05/09/2024 3:56 PM HOSPITAL AIDES AND ASSISTANTS TEACHER Body Mass Index 24.08 05/09/2024 3:56 PM HOSPITAL AIDES AND ASSISTANTS TEACHER Plan of Treatment Health Maintenance Due Date [...] Read Routine (OP Routine) 07/18/2024 3:43 PM HOSPITAL AIDES AND ASSISTANTS TEACHER Low back pain, unspecified back pain laterality, unspecified chronicity, unspecified whether sciatica present N. GONORRHOEAE/C. TRACHOMATIS AMPLIFICATION Routine 02/24/2024 4:00 PM CDT Routine screening for STI (sexually transmitted infection) PAP, REFLEX HPV Routine 07/01/2023 2:55 PM HOSPITAL AIDES AND ASSISTANTS TEACHER Well woman exam from Last 3 Months or Most Recently Relevant to Health Maintenance Results * MRI Lumbar Spine WO Contrast (07/18/2024 3:43 PM HOSPITAL AIDES AND ASSISTANTS TEACHER) Anatomical Region Laterality Modality Spine N/A Magnetic Resonan ce 07/18/2024 4:11 PM HOSPITAL AIDES AND ASSISTANTS TEACHER Impressions 07/18/2024 9:57 PM HOSPITAL AIDES AND ASSISTANTS TEACHER Moderate left central protrusion and annular fissure at L5-S1 with mild mass effect on the left S1 root. Electronically signed by: Brittny Muniz M.D. Narrative 07/18/2024 9:57 PM HOSPITAL AIDES AND ASSISTANTS TEACHER Examination: MRI LUMBAR SPINE WO CONTRAST Date: [...] 4:00 PM CDT) C. trachomatis Not Detected [facility] Comment:Testing performed by : [facility], [address] [facility] [place]., [address] N. gonorrhoeae Not Detected DYANA KAY Comment: Interpretive Data This assay detects Chlamydia trachomatis and Neisseria gonorrhoeae by nucleic acid amplification testing (NAAT). This assay has been cleared by the [place] Food and Drug administration. The performance characteristics of this test have been verified by the [facility] Molecular Infectious Disease laboratory. The performance characteristics of this test have not been evaluated in individuals less than 14 years of age. Current Interpretive Data was last revised on 2023. Testing performed by: [facility], [address] [facility] [place]., [address] Urine (None) 02/24/2024 4:00 PM CDT 02/25/2024 1:35 PM CDT us Petra Castillo WOOL FLEECE GRADER LAB MICROBIOLOGY - GENERAL ORDERABLES Final Result DYANA [id number] Department of Laboratories [place], [place] [id number] [facility] * Pap, reflex HPV (07/01/2023 2:55 PM HOSPITAL AIDES AND ASSISTANTS TEACHER) CLINICAL INFORMATION: Lisandra [employer] Ornelas Comment:None given LMP Lisandra SeraCharlie Ornelas Comment:NONE GIVEN Previous Pap [facility]osticsCharlie Ornelas Comment:NONE GIVEN Prev. Bx Lisandra SeraCharlie Ornelas Comment:NONE GIVEN SOURCE: Lisandra [employer] Ornelas Comment:Cervix, Endocervix Pap, specimen adequacy Lisandra [employer] Ornelas Comment: Satisfactory for evaluation. Endocervical/transformation zone component present. Age and/or menstrual status not provided HPV interp Lisandra Ornelas Comment: Cytology Results: Negative for intraepithelial lesion or malignancy. COMMENTS Lisandra [employer] Ornelas Comment: This Pap test has been evaluated with computer assisted technology. Garage Door Installer [facility] Packet[employer]Charlie Ornelas Comment: BES, CT(ASCP) CT screening location: [place] [address] [place] [address] Comment Lisandra [employer] Ornelas Comment: EXPLANATORY NOTE: The Pap is [...] clinical information. Thin prep 07/01/2023 2:55 PM HOSPITAL AIDES AND ASSISTANTS TEACHER 07/02/2023 8:22 AM HOSPITAL AIDES AND ASSISTANTS TEACHER Almaz Clark WOOL FLEECE GRADER LAB CYTOLOGY ORDERABLES Fin al Result Performing Organization Address City/[facility]/ZIP Co de Phone Number [facility] [address] [place] [address] from Last 3 Months or Most Recently Relevant to Health Maintenance Insurance [facility] Care Teams Centrifuge Separator Operator Relationship Specialty Start Date End Date Reynaldo Carlson MD [address] [place] [address] PCP - General Family Medicine 04/21/18
--- OUTSIDE RECORDS SUMMARY | 2024-08-29 16:08 | XMS_ITS | Referral Summary ---
Author Organization [facility] [address] [facility] lt Address [address] [place] [address] Care Team Providers Care Order Caller Name Role Phone Reynaldo Carlson MD Primary Care Provider [phone] [phone] Encounters Date Type Department Care Team Description 07/18/2024 1:56 PM OFFICE ADMINISTRATION INSTRUCTOR - 07/18/2024 11:59 PM OFFICE ADMINISTRATION INSTRUCTOR Hospital Encounter [facility] Imaging and Radiology [address] [place] [address] Low back pain, unspecified back pain laterality, unspecified chronicity, unspecified whether sciatica present Discharge Disposition: Discharge to home or self care from Last 3 Months Allergies No known active allergies Medications etonogestreL (NEXPLANON) 68 mg implantIndications : Contraception 1 each (68 mg total) Nexplanon inserted 05-14-2021. Paid by insurance. Lot # [id number] exp 08-31-2023 Active citalopram (CeleXA) 20 mg [...] Wear sunscreen/protective clothing when outdoors. -following with rooming house keeper annually -STD testing ordered today Generalized anxiety [...] card. Assessment & Plan (06/24/2022 2:59 PM OFFICE ADMINISTRATION INSTRUCTOR): Declines STD rto next year for complete exam. BMI 23.0-23.9, adult 01/15/2021 Assessment & Plan (02/24/2024 11:30 AM CDT): BMI is appropriate for patient Assessment & Plan (01/15/2021 12:25 PM CDT): Discussed healthy diet and importance of regular physical activity. BMI is acceptable for this patient. control counseling 01/14/2021 Overview (05/14/2021): nexplanon 04/2021 Due out 04/2024 Assessment & Plan (06/24/2022 2:56 PM OFFICE ADMINISTRATION INSTRUCTOR): Some irregular bleeding Will follow. Assessment & Plan (06/19/2021 1:18 PM OFFICE ADMINISTRATION INSTRUCTOR): Arm is well healed She will follow the bleeding for another week or so and call me with the results. Assessment & Plan (05/14/2021 12:08 PM OFFICE ADMINISTRATION INSTRUCTOR): The patient comes today desiring contraception. The [...] protect against STD's. Given referral today to BOILER TESTER. LMP 01/12/21, will restart OCP in the [...] exercises every other day with father at [place]. Encounter for control pills maintenance 07/31/19 20 [...] on file Legal Sex Female 11:09 AM OFFICE ADMINISTRATION INSTRUCTOR Gender Identity Not on file Sexual Orientation Not on file Occupation Industry Job Start Date Job End Date student Not on file Not on file Not on file Last Filed Vital Signs Vital Sign Reading Time Taken Comments Blood Pressure 116/80 05/09/2024 3:56 PM OFFICE ADMINISTRATION INSTRUCTOR Pulse 70 02/24/2024 10:51 AM CDT Temperature 36.6 C (97.9 F) 02/24/2024 10:51 AM CDT Respiratory Rate 16 01/07/2023 9:42 AM CDT Oxygen Saturation 99% 02/24/2024 10: 51 AM CDT Inhaled Oxygen Concentration - - Weight 65.6 kg (144 lb 11.2 oz) 05/09/2024 3:56 PM OFFICE ADMINISTRATION INSTRUCTOR Height 165.1 cm (5' 5 ) 05/09/2024 3:56 PM OFFICE ADMINISTRATION INSTRUCTOR Body Mass Index 24.08 05/09/2024 3:56 PM OFFICE ADMINISTRATION INSTRUCTOR Plan of Treatment Not on file Procedures Procedure Name Priority Date/Time Associated Diagnosis Comments MRI LUMBAR SPINE WO CONTRAST Schedule Routine, Read Routine (OP Routine) 07/18/2024 3:43 PM OFFICE ADMINISTRATION INSTRUCTOR Low back pain, unspecified back pain laterality, unspecified chronicity, unspecified whether sciatica present N. GONORRHOEAE/C. TRACHOMATIS AMPLIFICATION Routine 02/24/2024 4:00 PM CDT Routine screening for STI (sexually transmitted infection) PAP, REFLEX HPV Routine 07/01/2023 2:55 PM OFFICE ADMINISTRATION INSTRUCTOR Well woman exam from Last 3 Months or Most Recently Relevant to Health Maintenance Results * MRI Lumbar Spine WO Contrast (07/18/2024 3:43 PM OFFICE ADMINISTRATION INSTRUCTOR) Anatomical Region Laterality Modality Spine N/A Magnetic Resonan ce 07/18/2024 4:11 PM OFFICE ADMINISTRATION INSTRUCTOR Impressions 07/18/2024 9:57 PM OFFICE ADMINISTRATION INSTRUCTOR Moderate left central protrusion and annular fissure at L5-S1 with mild mass effect on the left S1 root. Electronically signed by: Brittny Munzi M.D. Narrative 07/18/2024 9:57 PM OFFICE ADMINISTRATION INSTRUCTOR Examination: MRI LUMBAR SPINE WO CONTRAST Date: [...] 4:00 PM CDT) C. trachomatis Not Detected [facility] Comment:Testing performed by : [facility], [address] [place]., [address] N. gonorrhoeae Not Detected DYANA KAY Comment: Interpretive Data This assay detects Chlamydia trachomatis and Neisseria gonorrhoeae by nucleic acid amplification testing (NAAT). This assay has been cleared by the [place] Food and Drug administration. The performance characteristics of this test have been verified by the [facility] Molecular Infectious Disease laboratory. The performance characteristics of this test have not been evaluated in individuals less than 14 years of age. Current Interpretive Data was last revised on 2023. Testing performed by: [facility], [address] [place]., [address] Urine (None) 02/24/2024 4:00 PM CDT 02/25/2024 1:35 PM CDT Petra Castillo AIR QUALITY TECHNICIAN LAB MICROBIOLOGY - GENERAL ORDERABLES Final Result Performing Organization Address City/[facility]/ZIP Co de Phone Number DYANA KAY [address] [place] [address] [facility] * Pap, reflex HPV (07/01/2023 2:55 PM OFFICE ADMINISTRATION INSTRUCTOR) CLINICAL INFORMATION: Mya Ornelas Comment:None given LMP Mya Ornelas Comment:NONE GIVEN Previous Pap Mya Ornelas Comment:NONE GIVEN Prev. Bx Mya Ornelas Comment:NONE GIVEN SOURCE: Mya Ornelas Comment:Cervix, Endocervix Pap, specimen adequacy Mya Ornelas Comment: Satisfactory for evaluation. Endocervical/transformation zone component present. Age and/or menstrual status not provided HPV interp Mya Ornelas Comment: Cytology Results: Negative for intraepithelial lesion or malignancy. COMMENTS Mya Ornelas Comment: This Pap test has been evaluated with computer assisted technology. [facility] st Manjeet Ornelas Comment: BES, CT(ASCP) CT screening location: [place] [address] [place] [address] Comment Mya Ornelas Comment: EXPLANATORY NOTE: The [...] clinical information. Thin prep 07/01/2023 2:55 PM OFFICE ADMINISTRATION INSTRUCTOR 07/02/2023 8:22 AM OFFICE ADMINISTRATION INSTRUCTOR Almaz Clark AIR QUALITY TECHNICIAN LAB CYTOLOGY ORDERABLES Fin al Result Performing Organization Address [facility]/ZIP Co de Phone Number MYA [facility] [address] [address] [phone] from Last 3 Months or Most Recently Relevant to Health Maintenance Insurance [facility] Care Teams Order Caller Relationship Specialty Start Date End Date Reynaldo Carlson MD [address] [place] [address] PCP - General Family Medicine 04/21/18
--- OUTSIDE RECORDS SUMMARY | 2024-08-29 16:08 | XMS_ITS | Clinical Summary ---
Author Organization [facility] Address [address] [place] [address] Care Team Providers Care Certified Orthotist/Pedorthist Name Role Phone Marisol Bradley MD Primary Care Provider [phone] Source Comments [facility],non-owned Affiliates and Associated Physician Practices is amultiple site organization consisting of ambulatory clinics and hospital sitesin [place], [place], [place] and [place]. This disclosure is being madepursuant to the Care Everywhere program and may not contain all information available regarding this patient. Last updated 18.[facility] Allergies No known active allergies Medications Be [...] age to complete this topic Care Teams Certified Orthotist/Pedorthist Relationship Specialty Start Date End Date Marisol Bradley MD [address] [address] PCP - General Pediatrics 08/03/16
== END 2024-08-29 14:37 | disposition home or self-care (01) ==
LOC: ANHED 14:32
PROVIDERS: Emergency Provider Physician Assistant; PCP Family Medicine
DX: S60.222A Contusion of left hand, initial encounter (principal); F41.9 Anxiety disorder, unspecified; W23.0XXA Caught, crushed, jammed, or pinched between moving objects, initial encounter
CPT/HCPCS: 73120; 99283

== ENCOUNTER 2024-10-08 19:25 | Emergency (ER) | payer OTHER, SELFPAY ==
--- OUTSIDE RECORDS SUMMARY | 2024-10-08 19:28 | XMS_ITS | Clinical Summary ---
Author Organization [facility] [address] [facility] lt Address [address] [place] [address] Care Team Providers Care Boat Deckhand Name Role Phone Reynaldo Carlson MD Primary Care Provider [phone] [phone] Allergies No known active allergies Medications etonogestreL (NEXPLANON) 68 mg implantIndications : Contraception 1 each (68 mg total) Nexplanon inserted 05-14-2021. Paid by insurance. Lot # [id number] exp 08-31-2023 Active citalopram (CeleXA) 20 mg [...] Wear sunscreen/protective clothing when outdoors. -following with airport engineer annually -STD testing ordered today Generalized anxiety [...] card. Assessment & Plan (06/24/2022 2:59 PM LANDS RESOURCE MANAGER): Declines STD rto next year for complete exam. BMI 23.0-23.9, adult 01/15/2021 Assessment & Plan (02/24/2024 11:30 AM CDT): BMI is appropriate for patient Assessment & Plan (01/15/2021 12:25 PM CDT): Discussed healthy diet and importance of regular physical activity. BMI is acceptable for this patient. control counseling 01/14/2021 Overview (05/14/2021): nexplanon 04/2021 Due out 04/2024 Assessment & Plan (06/24/2022 2:56 PM LANDS RESOURCE MANAGER): Some irregular bleeding Will follow. Assessment & Plan (06/19/2021 1:18 PM LANDS RESOURCE MANAGER): Arm is well healed She will follow the bleeding for another week or so and call me with the results. Assessment & Plan (05/14/2021 12:08 PM LANDS RESOURCE MANAGER): The patient comes today desiring contraception. [...] protect against STD's. Given referral today to PLASTICS FABRICATOR OR WELDER. LMP 01/12/21, will restart OCP in the [...] exercises every other day with father at [place]. Encounter for control pills maintenance 07/31/19 20 [...] Department Care Team Description 07/18/2024 1:56 PM LANDS RESOURCE MANAGER - 07/18/2024 11:59 PM LANDS RESOURCE MANAGER Hospital Encounter [facility] Imaging and Radiology [address] [place] [address] Low back pain, unspecified back pain laterality, [...] 1 Other no colon, breas t or airport engineer cancer no change 06/24/22 cmt Other 2 [...] on file Legal Sex Female 11:09 AM LANDS RESOURCE MANAGER Gender Identity Not on file Sexual [...] Comments Blood Pressure 116/80 05/09/2024 3:56 PM LANDS RESOURCE MANAGER Pulse 70 02/24/2024 10:51 AM CDT Temperature 36.6 C (97.9 F) 02/24/2024 10:51 AM CDT Respiratory Rate 16 01/07/2023 9:42 AM CDT Oxygen Saturation 99% 02/24/2024 10: 51 AM CDT Inhaled Oxygen Concentration - - Weight 65.6 kg (144 lb 11.2 oz) 05/09/2024 3:56 PM LANDS RESOURCE MANAGER Height 165.1 cm (5' 5 ) 05/09/2024 3:56 PM LANDS RESOURCE MANAGER Body Mass Index 24.08 05/09/2024 3:56 PM LANDS RESOURCE MANAGER Plan of Treatment Health Maintenance Due [...] Read Routine (OP Routine) 07/18/2024 3:43 PM LANDS RESOURCE MANAGER Low back pain, unspecified back pain laterality, unspecified chronicity, unspecified whether sciatica present N. GONORRHOEAE/C. TRACHOMATIS AMPLIFICATION Routine 02/24/2024 4:00 PM CDT Routine screening for STI (sexually transmitted infection) PAP, REFLEX HPV Routine 07/01/2023 2:55 PM LANDS RESOURCE MANAGER Well woman exam from Last 3 Months or Most Recently Relevant to Health Maintenance Results * MRI Lumbar Spine WO Contrast (07/18/2024 3:43 PM LANDS RESOURCE MANAGER) Anatomical Region Laterality Modality Spine N/A Magnetic Resonan ce 07/18/2024 4:11 PM LANDS RESOURCE MANAGER Impressions 07/18/2024 9:57 PM LANDS RESOURCE MANAGER Moderate left central protrusion and annular fissure at L5-S1 with mild mass effect on the left S1 root. Electronically signed by: Brittny Muniz M.D. Narrative 07/18/2024 9:57 PM LANDS RESOURCE MANAGER Examination: MRI LUMBAR SPINE WO CONTRAST [...] 4:00 PM CDT) C. trachomatis Not Detected [facility] Comment:Testing performed by : [facility], [address] [place]., [address] N. gonorrhoeae Not Detected DYANA KAY Comment: Interpretive Data This assay detects Chlamydia trachomatis and Neisseria gonorrhoeae by nucleic acid amplification testing (NAAT). This assay has been cleared by the [place] Food and Drug administration. The performance characteristics of this test have been verified by the [facility] Molecular Infectious Disease laboratory. The performance characteristics of this test have not been evaluated in individuals less than 14 years of age. Current Interpretive Data was last revised on 2023. Testing performed by: [facility], [address] [place]., [address] Urine (None) 02/24/2024 4:00 PM CDT 02/25/2024 1:35 PM CDT us Petra Castillo HELICOPTER REPAIRER LAB MICROBIOLOGY - GENERAL ORDERABLES Final Result DYANA [id number] [address] Department of Laboratories [place], [place] [id number] [facility] * Pap, reflex HPV (07/01/2023 2:55 PM LANDS RESOURCE MANAGER) CLINICAL INFORMATION: Lisandra CloudmachCharlie Ornelas Comment:None given LMP Lisandra SeraCharlie Ornelas Comment:NONE GIVEN Previous Pap Lisandra DiagnosticsCharlie Ornelas Comment:NONE GIVEN Prev. Bx Lisandra SeraCharlie Ornelas Comment:NONE GIVEN SOURCE: Lisandra CloudmachCharlie Ornelas Comment:Cervix, Endocervix Pap, specimen adequacy Lisandra CloudmachCharlie Ornelas Comment: Satisfactory for evaluation. Endocervical/transformation zone component present. Age and/or menstrual status not provided HPV interp Lisandra Ornelas Comment: Cytology Results: Negative for intraepithelial lesion or malignancy. COMMENTS Lisandra CloudmachCharlie Ornelas Comment: This Pap test has been evaluated with computer assisted technology. Heading Saw Operator [facility] CloudmachCharlie Ornelas Comment: BES, CT(ASCP) CT screening location: [place] [address] [place] [address] Comment Lisandra CloudmachCharlie Ornelas Comment: EXPLANATORY NOTE: The Pap is [...] clinical information. Thin prep 07/01/2023 2:55 PM LANDS RESOURCE MANAGER 07/02/2023 8:22 AM LANDS RESOURCE MANAGER Almaz Clark HELICOPTER REPAIRER LAB CYTOLOGY ORDERABLES Fin al Result Performing Organization Address City/[facility]/ZIP Co de Phone Number [facility] [address] [place] [address] from Last 3 Months or Most Recently Relevant to Health Maintenance Insurance [facility] HMO/PPO Address: [address] [address] [place] [address] [facility] HMO/PPO Address: [address] [place] [phone] Care Teams Boat Deckhand Relationship Specialty Start Date End Date Reynaldo Carlson MD [address] [place] [address] PCP - General Family Medicine 04/21/18
--- OUTSIDE RECORDS SUMMARY | 2024-10-08 19:28 | XMS_ITS | Clinical Summary ---
Author Organization [facility] Address [address] [place] [address] Care Team Providers Care Human Resources Hr Representative Name Role Phone Marisol Bradley MD Primary Care Provider Source Comments [facility],non-owned Affiliates and Associated Physician Practices is amultiple site organization consisting of ambulatory clinics and hospital sitesin [place], [place], [place] and [place]. This disclosure is being madepursuant to the Care Everywhere program and may not contain all information available regarding this patient. Last updated 18.[facility] Allergies No known active allergies Medications * Be aware that medications may not be up to date on this document. Alwaysverify current medications with the patient. No known medications Social History Tobacco Use Types Packs/Day Years Used Date Smoking Tobacco: Never Assessed Comments Unknown Sex and Gender Information Value Date Recorded Sex Assigned at Not on file Legal Sex Female 10:15 AM CDT Gender Identity Not on file Sexual Orientation [...] Health Maintenance Due Date Last Done Comments HIV SCREENING 2017 HPV VACCINE (1 - [...] on patient's age to complete this topic Insurance [facility] Care Teams Human Resources Hr Representative Relationship Specialty Start Date End Date Marisol Bradley MD [address] [place] [phone] PCP - General Pediatrics 08/03/16
--- OUTSIDE RECORDS SUMMARY | 2024-10-08 19:28 | XMS_ITS | Referral Summary ---
Author Organization [facility] [address] [facility] lt Address [address] [place] [address] Care Team Providers Care Principal Technical Writer Name Role Phone Reynaldo Carlson MD Primary Care Provider [phone] Encounters Date Type Department Care Team Description 07/18/2024 1:56 PM CARPENTER BRIDGE - 07/18/2024 11:59 PM CARPENTER BRIDGE Hospital Encounter [facility] Imaging and Radiology [address] [place] [address] Low back pain, unspecified back pain laterality, unspecified chronicity, unspecified whether sciatica present Discharge Disposition: Discharge to home or self care from Last 3 Months Allergies No known active allergies Medications etonogestreL (NEXPLANON) 68 mg implantIndications : Contraception 1 each (68 mg total) Nexplanon inserted 05-14-2021. Paid by insurance. Lot # [id number] exp 08-31-2023 Active citalopram (CeleXA) 20 mg [...] Wear sunscreen/protective clothing when outdoors. -following with obgyn specialist annually -STD testing ordered today Generalized anxiety [...] card. Assessment & Plan (06/24/2022 2:59 PM CARPENTER BRIDGE): Declines STD rto next year for complete exam. BMI 23.0-23.9, adult 01/15/2021 Assessment & Plan (02/24/2024 11:30 AM CDT): BMI is appropriate for patient Assessment & Plan (01/15/2021 12:25 PM CDT): Discussed healthy diet and importance of regular physical activity. BMI is acceptable for this patient. control counseling 01/14/2021 Overview (05/14/2021): nexplanon 04/2021 Due out 04/2024 Assessment & Plan (06/24/2022 2:56 PM CARPENTER BRIDGE): Some irregular bleeding Will follow. Assessment & Plan (06/19/2021 1:18 PM CARPENTER BRIDGE): Arm is well healed She will follow the bleeding for another week or so and call me with the results. Assessment & Plan (05/14/2021 12:08 PM CARPENTER BRIDGE): The patient comes today desiring contraception. The [...] protect against STD's. Given referral today to ADMEASURER. LMP 01/12/21, will restart OCP in the [...] exercises every other day with father at [place]. Encounter for control pills maintenance 07/31/19 20 [...] on file Legal Sex Female 11:09 AM CARPENTER BRIDGE Gender Identity Not on file Sexual Orientation Not on file Occupation Industry Job Start Date Job End Date student Not on file Not on file Not on file Last Filed Vital Signs Vital Sign Reading Time Taken Comments Blood Pressure 116/80 05/09/2024 3:56 PM CARPENTER BRIDGE Pulse 70 02/24/2024 10:51 AM CDT Temperature 36.6 C (97.9 F) 02/24/2024 10:51 AM CDT Respiratory Rate 16 01/07/2023 9:42 AM CDT Oxygen Saturation 99% 02/24/2024 10: 51 AM CDT Inhaled Oxygen Concentration - - Weight 65.6 kg (144 lb 11.2 oz) 05/09/2024 3:56 PM CARPENTER BRIDGE Height 165.1 cm (5' 5 ) 05/09/2024 3:56 PM CARPENTER BRIDGE Body Mass Index 24.08 05/09/2024 3:56 PM CARPENTER BRIDGE Plan of Treatment Not on file Procedures Procedure Name Priority Date/Time Associated Diagnosis Comments MRI LUMBAR SPINE WO CONTRAST Schedule Routine, Read Routine (OP Routine) 07/18/2024 3:43 PM CARPENTER BRIDGE Low back pain, unspecified back pain laterality, unspecified chronicity, unspecified whether sciatica present N. GONORRHOEAE/C. TRACHOMATIS AMPLIFICATION Routine 02/24/2024 4:00 PM CDT Routine screening for STI (sexually transmitted infection) PAP, REFLEX HPV Routine 07/01/2023 2:55 PM CARPENTER BRIDGE Well woman exam from Last 3 Months or Most Recently Relevant to Health Maintenance Results * MRI Lumbar Spine WO Contrast (07/18/2024 3:43 PM CARPENTER BRIDGE) Anatomical Region Laterality Modality Spine N/A Magnetic Resonan ce 07/18/2024 4:11 PM CARPENTER BRIDGE Impressions 07/18/2024 9:57 PM CARPENTER BRIDGE Moderate left central protrusion and annular fissure at L5-S1 with mild mass effect on the left S1 root. Electronically signed by: Brittny Muniz M.D. Narrative 07/18/2024 9:57 PM CARPENTER BRIDGE Examination: MRI LUMBAR SPINE WO CONTRAST Date: [...] 4:00 PM CDT) C. trachomatis Not Detected [facility] Comment:Testing performed by : [facility], [address] [place]., [address] N. gonorrhoeae Not Detected DYANA KAY Comment: Interpretive Data This assay detects Chlamydia trachomatis and Neisseria gonorrhoeae by nucleic acid amplification testing (NAAT). This assay has been cleared by the [place] Food and Drug administration. The performance characteristics of this test have been verified by the [facility] Molecular Infectious Disease laboratory. The performance characteristics of this test have not been evaluated in individuals less than 14 years of age. Current Interpretive Data was last revised on 2023. Testing performed by: [facility], [address] [place]., [address] Urine (None) 02/24/2024 4:00 PM CDT 02/25/2024 1:35 PM CDT Petra Castillo PANEL CUTTER LAB MICROBIOLOGY - GENERAL ORDERABLES Final Result Performing Organization Address City/[facility]/ZIP Co de Phone Number DYANA KAY [address] [address] Department [place] [address] [facility] * Pap, reflex HPV (07/01/2023 2:55 PM CARPENTER BRIDGE) CLINICAL INFORMATION: Mya Ornelas Comment:None given LMP [...] has been evaluated with computer assisted technology. Substance Abuse Services Director [facility] st Manjeet Ornelas Comment: BES, CT(ASCP) CT screening location: [place] [address] [place] [address] Comment Mya Ornelas Comment: EXPLANATORY NOTE: The [...] clinical information. Thin prep 07/01/2023 2:55 PM CARPENTER BRIDGE 07/02/2023 8:22 AM CARPENTER BRIDGE Almaz Clark PANEL CUTTER LAB CYTOLOGY ORDERABLES Fin al Result Performing Organization Address [facility]/ZIP Co de Phone Number MYA [facility] [employer] [facility]Beul[facility] [address] [phone] from Last 3 Months or Most Recently Relevant to Health Maintenance Insurance [facility] Care Teams Principal Technical Writer Relationship Specialty Start Date End Date Reynaldo Carlson MD [address] [place] [address] PCP - General Family Medicine 04/21/18
[2024-10-08 19:37] VITALS: BP 137/86; PULSE 93; RESP 16; TEMP 36.7; O2SAT 100
--- NOTE | 2024-10-08 19:45 | ED.FEMALEGU ---
HPI - Female Genitourinary General Chief complaint: Urogenital-Female Stated complaint: urinary irritation Time Seen by Provider: 10/08/24 19:43 Source: patient Mode of arrival: ambulatory Limitations: no limitations History of Present Illness HPI Narrative: Lisa is a 24-year-old female patient presenting to the clinic today with complaints of possible UTI. She reports she noticed burning with urination last night. States that throughout the day she developed left-sided flank pain and pain radiating into her pelvic area. States she is still has burning with urination. Denies any vomiting, fevers, or chills. Flank pain is dull and constant with some sharp pain in the left groin/labia area. Rates her pain currently a 6/10. Last menstrual period was on October 04. Denies concern for STIs. Denies any chance of . Last bowel movement was yesterday. No blood in stool. Related Data Allergies Allergy/AdvReac Type Severity Reaction Status Date / Time No Known Allergies Allergy Verified 10/08/24 19:33 Review of Systems Review of Systems: Pertinent positives per HPI. Patient denies any fever, chills, rash, headache, visual changes, dizziness, cough, shortness of breath, chest pain, palpitations, nausea, vomiting, diarrhea, constipation. [facility] Past Medical History Medical History (Updated 10/08/24 @ 19:58 by Burke Esteban APRN) Encounter for adjustment and management of other implanted devices Encounter for surveillance of other contraceptives Anxiety Strep pharyngitis Surgical History Surgical History (System 08/30/24 @ 12:04 by Alonzo Moise) [place] teeth extracted Family History Family History Mother Depression Father Depression Hypertension Grandparent Hypertension Heart disease Diabetes mellitus Social History Social History (System 08/30/24 @ 12:04 by Alonzo Moise) Smoking status: Never smoker Alcohol intake: never Substance use: never Substance use type: does not use Do You Feel Safe in your Home?: Yes Lack of Transportation: No Lack of Food: Never True Current Housing: I Have Housing Concerned About Future Housing: No Difficulty Paying Gas/Electric Bills: No Difficulty Paying for Meds: No Currently Unemployed: No Education: Associate Degree Difficulty w/ Childcare or Family Care: No Additional occupation/education comments: RN Gender identity (if verbalized by the patient): Female Comments At the time of my signature, I reviewed and agree with the nursing past medical, surgical, social, and family history. There is no relevant family history pertinent to the patient complaint. Exam Narrative: General: Well-developed, well nourished, in no apparent distress. Head: Normocephalic, atraumatic. Cardio: Regular rate and rhythm, s1 and s2 normal, no murmur appreciated. Resp: Clear to auscultation bilaterally, no rhonchi, rales, wheezing or rubs. Abdomen: Soft, pliable, bowel sounds present in all quadrants, left groin tender to palpation, no organomegly, left CVAT tenderness. Course Course Emergency Course: Portions of this record may have been created with voice recognition software. Level of Care: Express Care Visit Vital Signs Vital signs: Vital Signs Temperature 36.7 C 10/08/24 19:37 Pulse Rate 93 10/08/24 19:37 Respiratory Rate 16 10/08/24 19:37 Blood Pressure 137/86 10/08/24 19:37 Pulse Oximetry 100 10/08/24 19:37 Oxygen Delivery Room Air 10/08/24 19:37 Temperature 36.7 C 10/08/24 19:37 Pulse Rate 93 10/08/24 19:37 Respiratory Rate 16 10/08/24 19:37 Blood Pressure 137/86 10/08/24 19:37 Pulse Oximetry 100 10/08/24 19:37 Oxygen Delivery Room Air 10/08/24 19:37 Vital signs reviewed Transfer Transfered to: [place] Transportation: Other (Private car) Transfer rationale: Left flank pain/left groin pain/ UTI- rule out pyelonephritis/ureterolithiasis Accepting physician: Kathia Transfer comments: Private car. NPO MDM - Female Genitourinary MDM Narrative Medical decision making narrative: At the time of visit patient is resting comfortably on the exam table. Patient appears to be nontoxic. Labs: Urinalysis positive for leukocytes, blood, and protein. We will send urine for culture. Bedside test was negative in the clinic today. Plan: I suspect patient has early pyelonephritis however cannot rule out obstructing kidney stone. Offered to send patient to the ER further evaluation and she declined at this time. Would like to trial the medication and go to the ER if her symptoms worsen. She has not taken anything for pain today so 800 mg of Motrin was prescribed and given in the clinic. Will send in prescription for Bactrim DS and Zofran. Supportive measures were discussed with the patient and they voiced understanding discharge instructions and agrees to treatment plan. Return precautions reviewed After patient was presented with discharge instructions she decided she wanted to be transfer to the emergency room for further evaluation. Contacted Davina SETH at [facility] and report was given for continuity of care and she accepts patient for transfer. Patient to go to the ER via private car. Differential Diagnosis Differential diagnosis: Likely urinary tract infection, bacterial vaginosis, trichomoniasis, vaginitis, cystitis and other (Pyelonephritis, ureterolithiasis, nephrolithiasis, constipation, colitis) Lab Data Labs: Lab Results 10/08/24 10/08/24 Range/Units 19:52 19:53 POC Urine Color Light/pale POC Urine Clarity Cloudy POC Urine pH 6.5 POC Ur Specif [place] 1.015 POC Urine Protein 3+ (Negative) POC Ur Glucose (UA) Negative (Negative) POC Urine Ketones Negative (Negative) POC Urine Blood 3+ (Negative) POC Urine Nitrite Negative (Negative) POC Urine Bilirubin Negative (Negative) POC Urine Urobilinogen 0.2 POC U Leukocyte Esteras 1+ (Negative) POC Urine HCG, Qual Negative (Negative) Discharge Plan Discharge Clinical Impression: Pyelonephritis Patient Disposition: Acute Care Hospital Condition: Stable Instructions: Antibiotic Form Patient Language: Monegasque Prescriptions: New sulfamethoxazole-trimethoprim [Bactrim DS] 800-160 mg tablet 1 tablet PO Q12H 7 Days Qty: 14 0RF ondansetron 4 mg tablet,disintegrating 4 mg PO Q6H PRN (Reason: nausea and vomiting) 3 Days Qty: 12 0RF Follow-up/Referrals: Brian Somers MD [Primary Care Provider] - Time of Disposition: 20:17 Quality NIHSS Nursing Documentation ED NIHSS nursing documentation: reviewed/agree
[2024-10-08 19:54] LABS: EDUAAPPEAR Cloudy; EDUABILI Negative (Negative); EDUABLOOD 3+ (Negative); EDUACOLOR1 Light/Pale; EDUAGLUCOSE Negative (Negative); EDUAKETONE Negative (Negative); EDUALEUKO 1+ (Negative); EDUANITRATE Negative (Negative); EDUAPH 6.5; EDUAPROTEIN 3+ (Negative); EDUASPGRAVITY 1.015; EDUAUROBILI 0.2
[2024-10-08 19:58] LABS: BEDSIDEPREGUCG Negative (Negative)
[2024-10-08] MEDS: IBUPROFEN 400 MG TABLET 800 MG PO (20:06)
== END 2024-10-08 20:16 | disposition short-term general hospital (02) ==
PROVIDERS: Emergency Provider Nurse Practitioner Family; PCP Family Medicine
DX: N12 Tubulo-interstitial nephritis, not specified as acute or chronic (principal)
CPT/HCPCS: 81003; 81025; 87086; 87186; 99213; A9270; G0463

== ENCOUNTER 2024-10-08 20:33 | Emergency (ER) | payer OTHER, SELFPAY ==
--- NOTE | ~2024-10-08 | CT_ITS ---
CLINICAL INDICATION: Left flank pain COMPARISON: None. TECHNIQUE: Multiple contiguous axial images of the abdomen and pelvis were performed without the admi nistration of intravenous contrast The dose-length product (DLP) was 266.54 mGy-cm. Automated exposure control and iterative reconstruction technique were employed. FINDINGS/OBSERVATIONS: Visualized lower thorax: The bilateral lung bases are clear. The heart is of normal size, without pericardial effusion. Liver: The liver demonstrates homogeneous attenuation and is not enlarged. Gallbladder and biliary system: The gallbladder is only minimally distended, and otherwise unremarkable. Pancreas: Limited evaluation of the pancreas secondary to the lack of intravenous contrast. Spleen: The spleen demonstrates homogeneous attenuation and is not enlarged. Kidneys: Global enlargement of the left kidney with mild hydroureteronephrosis without an obstructing stone ap preciated. The right kidney and ureter are unremarkable. Adrenal glands: Unremarkable. Gastrointestinal tract: Fecal stasis within the colon. Appendix: The appendix is not definitively visualized. However, no pericecal inflammatory change is identified suggest the presence of acute appendicitis. Vasculature: Unremarkable. Lymph nodes: Limited evaluation without intravenous contrast. Pelvic structures: The bladder is decompressed, limiting its evaluation. The uterus is not well visualized secondary to the lack of intrapelvic fat. Body wall and musculoskeletal: No significant degenerative disease within the lower thoracic or lumbosacral spine. IMPRESSION: Global enlargement of the left kidney with mild hydroureteronephrosis without an obstructing stone id entified. Reviewed, dictated and finalized at location A. IMPRESSION: Global enlargement of the left kidney with mild hydroureteronephrosis without a n obstructing stone identified.
--- OUTSIDE RECORDS SUMMARY | 2024-10-08 20:35 | XMS_ITS | Referral Summary ---
Author Organization [facility] [place] [address] [facility] lt Address [address] [place] [address] Care Team Providers Care Critical Power Install Technician Name Role Phone Reynaldo Carlson MD Primary Care Provider [phone] Encounters Date Type Department Care Team Description 07/18/2024 1:56 PM LEGAL DOCUMENT SPECIALIST - 07/18/2024 11:59 PM LEGAL DOCUMENT SPECIALIST Hospital Encounter [facility] Imaging and Radiology [address] [place] [address] Low back pain, unspecified back pain laterality, unspecified chronicity, unspecified whether sciatica present Discharge Disposition: Discharge to home or self care from Last 3 Months Allergies No known active allergies Medications etonogestreL (NEXPLANON) 68 mg implantIndications : Contraception 1 each (68 mg total) Nexplanon inserted 05-14-2021. Paid by insurance. Lot # [id number] exp 08-31-2023 Active citalopram (CeleXA) 20 mg [...] Wear sunscreen/protective clothing when outdoors. -following with gas appliance servicer helper annually -STD testing ordered today Generalized [...] card. Assessment & Plan (06/24/2022 2:59 PM LEGAL DOCUMENT SPECIALIST): Declines STD rto next year for complete exam. BMI 23.0-23.9, adult 01/15/2021 Assessment & Plan (02/24/2024 11:30 AM CDT): BMI is appropriate for patient Assessment & Plan (01/15/2021 12:25 PM CDT): Discussed healthy diet and importance of regular physical activity. BMI is acceptable for this patient. control counseling 01/14/2021 Overview (05/14/2021): nexplanon 04/2021 Due out 04/2024 Assessment & Plan (06/24/2022 2:56 PM LEGAL DOCUMENT SPECIALIST): Some irregular bleeding Will follow. Assessment & Plan (06/19/2021 1:18 PM LEGAL DOCUMENT SPECIALIST): Arm is well healed She will follow the bleeding for another week or so and call me with the results. Assessment & Plan (05/14/2021 12:08 PM LEGAL DOCUMENT SPECIALIST): The patient comes today desiring contraception. The [...] protect against STD's. Given referral today to PIPE INSTALLER. LMP 01/12/21, will restart OCP in the [...] exercises every other day with father at [place]. Encounter for control pills maintenance 07/31/19 20 [...] on file Legal Sex Female 11:09 AM LEGAL DOCUMENT SPECIALIST Gender Identity Not on file Sexual Orientation Not on file Occupation Industry Job Start Date Job End Date student Not on file Not on file Not on file Last Filed Vital Signs Vital Sign Reading Time Taken Comments Blood Pressure 116/80 05/09/2024 3:56 PM LEGAL DOCUMENT SPECIALIST Pulse 70 02/24/2024 10:51 AM CDT Temperature 36.6 C (97.9 F) 02/24/2024 10:51 AM CDT Respiratory Rate 16 01/07/2023 9:42 AM CDT Oxygen Saturation 99% 02/24/2024 10: 51 AM CDT Inhaled Oxygen Concentration - - Weight 65.6 kg (144 lb 11.2 oz) 05/09/2024 3:56 PM LEGAL DOCUMENT SPECIALIST Height 165.1 cm (5' 5 ) 05/09/2024 3:56 PM LEGAL DOCUMENT SPECIALIST Body Mass Index 24.08 05/09/2024 3:56 PM LEGAL DOCUMENT SPECIALIST Plan of Treatment Not on file Procedures Procedure Name Priority Date/Time Associated Diagnosis Comments MRI LUMBAR SPINE WO CONTRAST Schedule Routine, Read Routine (OP Routine) 07/18/2024 3:43 PM LEGAL DOCUMENT SPECIALIST Low back pain, unspecified back pain laterality, unspecified chronicity, unspecified whether sciatica present N. GONORRHOEAE/C. TRACHOMATIS AMPLIFICATION Routine 02/24/2024 4:00 PM CDT Routine screening for STI (sexually transmitted infection) PAP, REFLEX HPV Routine 07/01/2023 2:55 PM LEGAL DOCUMENT SPECIALIST Well woman exam from Last 3 Months or Most Recently Relevant to Health Maintenance Results * MRI Lumbar Spine WO Contrast (07/18/2024 3:43 PM LEGAL DOCUMENT SPECIALIST) Anatomical Region Laterality Modality Spine N/A Magnetic Resonan ce 07/18/2024 4:11 PM LEGAL DOCUMENT SPECIALIST Impressions 07/18/2024 9:57 PM LEGAL DOCUMENT SPECIALIST Moderate left central protrusion and annular fissure at L5-S1 with mild mass effect on the left S1 root. Electronically signed by: Brittny Muniz M.D. Narrative 07/18/2024 9:57 PM LEGAL DOCUMENT SPECIALIST Examination: MRI LUMBAR SPINE WO CONTRAST Date: [...] the left S1 root. Electronically signed by: Brtitny Muniz M.D. us Not In File Miscellaneous IMG MRI PROCEDURES Fin al Result * N. gonorrhoeae/C. trachomatis Amplification Urine (02/24/2024 4:00 PM CDT) C. trachomatis Not Detected [facility] Comment:Testing performed by : [facility], [address] [facility], [place]., [address] N. gonorrhoeae Not Detected DYANA KAY Comment: Interpretive Data This assay detects Chlamydia trachomatis and Neisseria gonorrhoeae by nucleic acid amplification testing (NAAT). This assay has been cleared by the [place] Food and Drug administration. The performance characteristics of this test have been verified by the [facility] Molecular Infectious Disease laboratory. The performance characteristics of this test have not been evaluated in individuals less than 14 years of age. Current Interpretive Data was last revised on 2023. Testing performed by: [facility], [address] [facility], [place] [place]., [address] Urine (None) 02/24/2024 4:00 PM CDT 02/25/2024 1:35 PM CDT Petra Castillo PERFUSIONIST LAB MICROBIOLOGY - GENERAL ORDERABLES Final Result Performing Organization Address City/[facility]/ZIP Co de Phone Number DYANA KAY [id number] [address] Department [place] [address] [facility] * Pap, reflex HPV (07/01/2023 2:55 PM LEGAL DOCUMENT SPECIALIST) CLINICAL INFORMATION: Mya Ornelas Comment:None given LMP [...] has been evaluated with computer assisted technology. Lead Technical Writer [facility] Man[facility]et Ornelas Comment: BES, CT(ASCP) CT screening location: [place] [address] [place] [address] Comment Mya Ornelas Comment: EXPLANATORY NOTE: The [...] clinical information. Thin prep 07/01/2023 2:55 PM LEGAL DOCUMENT SPECIALIST 07/02/2023 8:22 AM LEGAL DOCUMENT SPECIALIST Almaz Clark PERFUSIONIST LAB CYTOLOGY ORDERABLES Fin al Result Performing Organization Address [facility]/ZIP Co de Phone Number MYA [facility] [[email or web address]] [facility] [address] [phone] from Last 3 Months or Most Recently Relevant to Health Maintenance Insurance [facility] Care Teams Critical Power Install Technician Relationship Specialty Start Date End Date Reynaldo Carlson MD [address] [place] [address] PCP - General Family Medicine 04/21/18
--- OUTSIDE RECORDS SUMMARY | 2024-10-08 20:35 | XMS_ITS | Clinical Summary ---
Author Organization [facility] [address] [facility] lt Address [address] [place] [address] Care Team Providers Care Fashion Designer Name Role Phone Reynaldo Carlson MD Primary Care Provider [phone] Allergies No known active allergies Medications etonogestreL (NEXPLANON) 68 mg implantIndications : Contraception 1 each (68 mg total) Nexplanon inserted 05-14-2021. Paid by insurance. Lot # [id number] exp 08-31-2023 Active citalopram (CeleXA) 20 mg [...] Wear sunscreen/protective clothing when outdoors. -following with adult services librarian annually -STD testing ordered today Generalized anxiety [...] card. Assessment & Plan (06/24/2022 2:59 PM WARDSPERSON): Declines STD rto next year for complete exam. BMI 23.0-23.9, adult 01/15/2021 Assessment & Plan (02/24/2024 11:30 AM CDT): BMI is appropriate for patient Assessment & Plan (01/15/2021 12:25 PM CDT): Discussed healthy diet and importance of regular physical activity. BMI is acceptable for this patient. control counseling 01/14/2021 Overview (05/14/2021): nexplanon 04/2021 Due out 04/2024 Assessment & Plan (06/24/2022 2:56 PM WARDSPERSON): Some irregular bleeding Will follow. Assessment & Plan (06/19/2021 1:18 PM WARDSPERSON): Arm is well healed She will follow the bleeding for another week or so and call me with the results. Assessment & Plan (05/14/2021 12:08 PM WARDSPERSON): The patient comes today desiring contraception. The [...] protect against STD's. Given referral today to OPERATIONS TEAM LEADER. LMP 01/12/21, will restart OCP in the [...] exercises every other day with father at [place]. Encounter for control pills maintenance 07/31/19 20 [...] Department Care Team Description 07/18/2024 1:56 PM WARDSPERSON - 07/18/2024 11:59 PM WARDSPERSON Hospital Encounter [facility] Imaging and Radiology [address] [place] [address] Low back pain, unspecified back pain laterality, [...] 1 Other no colon, breas t or adult services librarian cancer no change 06/24/22 cmt Other 2 [...] on file Legal Sex Female 11:09 AM WARDSPERSON Gender Identity Not on file Sexual Orientation [...] Comments Blood Pressure 116/80 05/09/2024 3:56 PM WARDSPERSON Pulse 70 02/24/2024 10:51 AM CDT Temperature 36.6 C (97.9 F) 02/24/2024 10:51 AM CDT Respiratory Rate 16 01/07/2023 9:42 AM CDT Oxygen Saturation 99% 02/24/2024 10: 51 AM CDT Inhaled Oxygen Concentration - - Weight 65.6 kg (144 lb 11.2 oz) 05/09/2024 3:56 PM WARDSPERSON Height 165.1 cm (5' 5 ) 05/09/2024 3:56 PM WARDSPERSON Body Mass Index 24.08 05/09/2024 3:56 PM WARDSPERSON Plan of Treatment Health Maintenance Due Date [...] Read Routine (OP Routine) 07/18/2024 3:43 PM WARDSPERSON Low back pain, unspecified back pain laterality, unspecified chronicity, unspecified whether sciatica present N. GONORRHOEAE/C. TRACHOMATIS AMPLIFICATION Routine 02/24/2024 4:00 PM CDT Routine screening for STI (sexually transmitted infection) PAP, REFLEX HPV Routine 07/01/2023 2:55 PM WARDSPERSON Well woman exam from Last 3 Months or Most Recently Relevant to Health Maintenance Results * MRI Lumbar Spine WO Contrast (07/18/2024 3:43 PM WARDSPERSON) Anatomical Region Laterality Modality Spine N/A Magnetic Resonan ce 07/18/2024 4:11 PM WARDSPERSON Impressions 07/18/2024 9:57 PM WARDSPERSON Moderate left central protrusion and annular fissure at L5-S1 with mild mass effect on the left S1 root. Electronically signed by: Brittny Muniz M.D. Narrative 07/18/2024 9:57 PM WARDSPERSON Examination: MRI LUMBAR SPINE WO CONTRAST Date: [...] 4:00 PM CDT) C. trachomatis Not Detected [facility] Comment:Testing performed by : [facility], [address] [place]., [address] N. gonorrhoeae Not Detected DYANA KAY Comment: Interpretive Data This assay detects Chlamydia trachomatis and Neisseria gonorrhoeae by nucleic acid amplification testing (NAAT). This assay has been cleared by the [place] Food and Drug administration. The performance characteristics of this test have been verified by the [facility] Molecular Infectious Disease laboratory. The performance characteristics of this test have not been evaluated in individuals less than 14 years of age. Current Interpretive Data was last revised on 2023. Testing performed by: [facility], [address] [place]., [address] Urine (None) 02/24/2024 4:00 PM CDT 02/25/2024 1:35 PM CDT us Petra Castillo COSMETOLOGIST APPRENTICE LAB MICROBIOLOGY - GENERAL ORDERABLES Final Result DYANA [id number] [address] Department of Laboratories [place], [place] [id number] [facility] * Pap, reflex HPV (07/01/2023 2:55 PM WARDSPERSON) CLINICAL INFORMATION: Lisandra PDP HoldingsCharlie Ornelas Comment:None given LMP Lisandra SeraCharlie Ornelas Comment:NONE GIVEN Previous Pap [facility] DiagnosticsCharlie Ornelas Comment:NONE GIVEN Prev. Bx Lisandra SeraCharlie Ornelas Comment:NONE GIVEN SOURCE: [facility] PDP HoldingsCharlie Ornelas Comment:Cervix, Endocervix Pap, specimen adequacy [facility] PD[facility] HoldingsCharlie Ornelas Comment: Satisfactory for evaluation. Endocervical/transformation zone component present. Age and/or menstrual status not provided HPV interp Lisandra Ornelas Comment: Cytology Results: Negative for intraepithelial lesion or malignancy. COMMENTS Lis[facility] PDP HoldingsCharlie Ornelas Comment: This Pap test has been evaluated with computer assisted technology. Insurance Salesman [facility] PDP HoldingsCharlie Ornelas Comment: BES, CT(ASCP) CT screening location: [place] [address] [place] [address] Comment Lisandra PDP HoldingsCharlie Ornelas Comment: EXPLANATORY NOTE: The Pap is [...] clinical information. Thin prep 07/01/2023 2:55 PM WARDSPERSON 07/02/2023 8:22 AM WARDSPERSON Almaz Clark COSMETOLOGIST APPRENTICE LAB CYTOLOGY ORDERABLES Fin al Result Performing Organization Address City/[facility]/ZIP Co de Phone Number [facility] [address] [place] [address] from Last 3 Months or Most Recently Relevant to Health Maintenance Insurance [facility] Care Teams Fashion Designer Relationship Specialty Start Date End Date Reynaldo Carlson MD [address] [place] [address] PCP - General Family Medicine 04/21/18
--- OUTSIDE RECORDS SUMMARY | 2024-10-08 20:35 | XMS_ITS | Clinical Summary ---
Author Organization [facility] Address [address] [place] [address] Care Team Providers Care Metal Control Coordinator Name Role Phone Marisol Bradley MD Primary Care Provider [phone] Source Comments [facility],non-owned Affiliates and Associated Physician Practices is amultiple site organization consisting of ambulatory clinics and hospital sitesin [place], [place], [place] and [place]. This disclosure is being madepursuant to the Care Everywhere program and may not contain all information available regarding this patient. Last updated 18.[facility] Allergies No known active allergies Medications * [...] patient's age to complete this topic Insurance [facility] Care Teams Metal Control Coordinator Relationship Specialty Start Date End Date Marisol Bradley MD [address] [place] [phone] PCP - General Pediatrics 08/03/16
[2024-10-08 21:12] VITALS: BP 119/64; PULSE 90; RESP 16; TEMP 37.4; O2SAT 100
[2024-10-08 21:36] LABS: BEDSIDEPREGUCG Negative (Negative)
[2024-10-08 22:01] LABS: Basophils Absolute Auto 0.1 K/mm3 (0.0-0.1); Basophils Percent Auto 0.5 % (0.2-1.2); Eosinophils Absolute Auto 0.2 K/mm3 (0-0.3); Eosinophils Percent Auto 1.4 % (0-4.4); Hematocrit 39.6 % (37.0-47.0); Hemoglobin 12.9 g/dL (12.0-15.0); Immature Granulocyte Absolute 0.05 K/mm3 (0.00-0.031); Immature Granulocyte Percent A 0.3 % (0-0.5); Lymphocytes Absolute Auto 1.79 K/mm3 (0.9-3.2); Lymphocytes Percent Auto 11.8 % (18.3-44.2); Mean Corpuscular HGB Conc 32.6 g/dl (32-36); Mean Corpuscular Hemoglobin 28.4 pg (26-34); Mean Platelet Volume 9.2 fl (7.4-10.4); Monocytes Percent Auto 6.8 % (2.6-8.5); Neutrophils Percent Auto 79.2 % (45.5-73.1); Platelet Count Result 397 k/mm3 (150-375); Red Blood Count 4.55 M/mm3 (4.2-5.4); Red Cell Distribution Width 12.7 % (11.5-14.5); White Blood Count 15.1 K/mm3 (4.5-10.0)
[2024-10-08 22:08] LABS: Add Urine Microscopic? YES; Appearance Urine Turbid (Clear); Bacteria Urine 1+ /hpf; Bilirubin Urine Negative (Negative); Blood Urine 3+ (Negative); Color Urine Yellow (Yellow); Glucose Urine UA Negative (Negative); Ketones Urine 1+ mg/dL (Negative); Leukocyte Esterase Ur 3+ LEU/UL (Negative); Nitrate Urine Negative (Negative); Protein Urine 3+ mg/dL (Negative); RBC Urine >100 /hpf (0-2); Specific Grav Ur 1.014 (1.001-1.035); Squamous Epithelial Cell Urine Occasional /hpf (Few); Urobilinogen Urine 0.2 mg/dL (<2.0); WBC Urine >100 /hpf (0-3); pH Urine 5.5 (5.0-9.0)
[2024-10-08 22:09] LABS: Alanine Aminotransferase 15 U/L (6-35); Albumin Level 4.9 g/dL (3.5-5.1); Alkaline Phosphatase 61 U/L (38-126); Anion Gap 12 mmol/L (4-12); Aspartate Amino Transferase 29 U/L (14-36); Bilirubin,Total 0.5 mg/dL (0.2-1.3); Blood Urea Nitrogen 10 mg/dL (7-17); Calcium 9.3 mg/dL (8.4-10.2); Carbon Dioxide 23 mmol/L (22-30); Chloride 105 mmol/L (98-107); Estimated CRCL calculation 110 ml/min; Estimated Glomerular Filt Rate > 60; Glucose 90 mg/dL (65-110); Lipase 79 U/L (23-300); Potassium 3.4 mmol/L (3.4-5.0); Sodium 140 mmol/L (137-145)
--- NOTE | 2024-10-08 23:40 | ED.FEMALEGU ---
HPI - Female Genitourinary General Chief complaint: Urogenital-Female Stated complaint: flank pain Time Seen by Provider: 10/08/24 21:17 History of Present Illness HPI Narrative: 24-year-old presents to emergency department for dysuria since 4:00 a.m. this morning. Patient urgent care prior to arrival and was told that it looked like she had a UTI. Patient was started on Bactrim and Zofran for pyelonephritis. While at urgent care she began developing left flank pain was advised to come to the ED to rule out a kidney stone. She states the pain is in her left flank and radiates to her suprapubic region. She reports dysuria and nausea. Denies fever and vomiting. Denies gross hematuria or history of kidney stones. Related Data Allergies Allergy/AdvReac Type Severity Reaction Status Date / Time No Known Allergies Allergy Verified 10/08/24 19:33 Review of Systems Review of Systems: All systems reviewed & are unremarkable except as noted in HPI and below PMFSH Past Medical History Medical History Encounter for adjustment and management of other implanted devices Encounter for surveillance of other contraceptives Anxiety Strep pharyngitis Surgical History Surgical History [place] teeth extracted Family History Family History Mother Depression Father Depression Hypertension Grandparent Hypertension Heart disease Diabetes mellitus Social History Social History Smoking status: Never smoker Alcohol intake: never Substance use: never Substance use type: does not use Do You Feel Safe in your Home?: Yes Lack of Transportation: No Lack of Food: Never True Current Housing: I Have Housing Concerned About Future Housing: No Difficulty Paying Gas/Electric Bills: No Difficulty Paying for Meds: No Currently Unemployed: No Education: Associate Degree Difficulty w/ Childcare or Family Care: No Additional occupation/education comments: RN Gender identity (if verbalized by the patient): Female Exam Narrative: GENERAL: Well-appearing, well-nourished, and in no acute distress. HEAD: Normocephalic, atraumatic. EYES: EOMI. ENT: Nares clear, no rhinorrhea or epistaxis. Mucous membranes moist. NECK: Supple. CHEST: Clear to auscultation. No respiratory distress. HEART: Regular rate and rhythm. No murmur heard. Normal peripheral pulses. ABDOMEN: Normoactive bowel sounds. Abdomen soft with suprapubic tenderness and left CVA tenderness. No rebound or rigidity EXTREMITIES: Normal range of motion. No edema. SKIN: Warm, dry, no rash. NEURO: No focal deficits. Alert and oriented x3 Course Vital Signs Vital signs: Vital Signs Temperature 99.3 F 10/08/24 21:12 Pulse Rate 90 10/08/24 21:12 Respiratory Rate 16 10/08/24 21:12 Blood Pressure 119/64 10/08/24 21:12 Pulse Oximetry 100 10/08/24 21:12 Oxygen Delivery Room Air 10/08/24 21:12 Temperature 99.3 F 10/08/24 21:12 Pulse Rate 90 10/08/24 21:12 Respiratory Rate 16 10/08/24 21:12 Blood Pressure 119/64 10/08/24 21:12 Pulse Oximetry 100 10/08/24 21:12 Oxygen Delivery Room Air 10/08/24 21:12 MDM - Female Genitourinary MDM Narrative Medical decision making narrative: 24-year-old female presents to the emergency department for dysuria, suprapubic abdominal pain, left flank pain and nausea since 4:00 a.m. this morning. Triage vitals are stable. Exam is significant for the above. Lab work with leukocytosis of 15.1. Chemistries are unremarkable with a normal creatinine and BUN. Urinalysis with greater than 100 wbc's, greater than 100 RBCs, 3+ leuk esterase and 1+ bacteria. is negative. Lipase is normal. CT abd/pelvis IMPRESSION: Global enlargement of the left kidney with mild hydroureteronephrosis without an obstructing stone identified. Patient updated on results. Unfortunately unable to obtain IV access, she was given 1 g IM Rocephin. She is otherwise well-appearing and suitable for outpatient antibiotics. She was started on Bactrim b.i.d. x7 days by urgent care, will lateral 3 additional days to her regimen. She was also prescribe Zofran which I encouraged her to take p.r.n.. I offered to provide prescriptions for ibuprofen and azo, however patient politely declined states she will get these [id number]. Advised to follow-up closely with her PCP and discussed strict ED return precautions. She is agreeable with the plan verbalized understanding. Discharged in stable condition. Lab Data 10/08/24 21:32 10/08/24 21:32 Labs: Lab Results 10/08/24 10/08/24 10/08/24 Range/Units 21:28 21:32 21:34 WBC 15.1 H (4.5-10.0) K/mm3 RBC 4.55 (4.2-5.4) M/mm3 Hgb 12.9 (12.0-15.0) g/dL Hct 39.6 (37.0-47.0) % MCV 87.0 (80-100) fl MCH 28.4 (26-34) pg MCHC 32.6 (32-36) g/dl RDW 12.7 (11.5-14.5) % Plt Count 397 H (150-375) k/mm3 MPV 9.2 (7.4-10.4) fl Immature Gran % (Auto) 0.3 (0-0.5) % Neut % (Auto) 79.2 H (45.5-73.1) % Lymph % (Auto) 11.8 L (18.3-44.2) % [place] % (Auto) 6.8 (2.6-8.5) % Eos % (Auto) 1.4 (0-4.4) % Baso % (Auto) 0.5 (0.2-1.2) % Lymph # (Auto) 1.79 (0.9-3.2) K/mm3 [place] # (Auto) 1.0 H (0.1-0.6) K/mm3 Eos # (Auto) 0.2 (0-0.3) K/mm3 Baso # (Auto) 0.1 (0.0-0.1) K/mm3 Abs Immat Gran (auto) 0.05 H (0.00-0.031) K/mm3 Absolute Neuts (auto) 12.0 H (1.3-6.7) K/mm3 Absolute Nucleated RBC 0.000 (0.0-0.012) K/mm3 Nucleated RBC % 0.0 (0.0-0.2) % Sodium 140 (137-145) mmol/L Potassium 3.4 (3.4-5.0) mmol/L Chloride 105 (98-107) mmol/L Carbon Dioxide 23 (22-30) mmol/L Anion Gap 12 (4-12) mmol/L BUN 10 (7-17) mg/dL Creatinine 0.64 L (0.7-1.0) mg/dL Estim Creat Clear Calc 110 ml/min Estimated GFR > 60 (59 - ) Glucose 90 (65-110) mg/dL Calcium 9.3 (8.4-10.2) mg/dL Total Bilirubin 0.5 (0.2-1.3) mg/dL AST 29 (14-36) U/L ALT 15 (6-35) U/L Alkaline Phosphatase 61 (38-126) U/L Total Protein 8.0 (6.3-8.2) g/dL Albumin 4.9 (3.5-5.1) g/dL Lipase 79 (23-300) U/L Urine Color Yellow (Yellow) Urine Appearance Turbid H (Clear) Urine pH 5.5 (5.0-9.0) Ur Specific [place] 1.014 (1.001-1.035) Urine Protein 3+ H (Negative) mg/dL Urine Glucose (UA) Negative (Negative) mg/dL Urine Ketones 1+ H (Negative) mg/dL Ur Blood (Man) 3+ H (Negative) Urine Nitrate Negative (Negative) Urine Bilirubin Negative (Negative) Urine Urobilinogen 0.2 (<2.0) mg/dL Leukocyte Esterase Rfl 3+ H (Negative) CHRISTY/UL Urine RBC >100 H (0-2) /hpf Urine WBC >100 H (0-3) /hpf Ur Squamous Epith Cells Occasional (Few) /hpf Urine Bacteria 1+ H /hpf Urine Casts 3-5 POC Urine HCG, Qual Negative (Negative) Discharge Plan Discharge Clinical Impression: Pyelonephritis, Hydroureteronephrosis Patient Disposition: Home Condition: Stable Instructions: Antibiotic Form, Kidney Infection (ED) Additional Instructions: You were evaluated in the emergency department with symptoms of UTI and left flank pain. You were found to have pyelonephritis as discussed. Please take the antibiotics as directed. Take ondansetron as needed for nausea and vomiting and azo as needed for bladder spasms and burning with urination. Take ibuprofen 800 mg every 6 hours as needed for pain. Follow-up closely with your primary care provider. Return to the emergency department if you develop a fever of 100.4 or greater, worsening or changing pain, you are unable to tolerate food or fluids, or other concerning symptoms. Patient Language: Ukrainian Prescriptions: New sulfamethoxazole-trimethoprim 800-160 mg tablet 1 tablet PO Q12H Qty: 6 0RF No Action sulfamethoxazole-trimethoprim [Bactrim DS] 800-160 mg tablet 1 tablet PO Q12H 7 Days Qty: 14 0RF ondansetron 4 mg tablet,disintegrating 4 mg PO Q6H PRN (Reason: nausea and vomiting) 3 Days Qty: 12 0RF Follow-up/Referrals: Brian Somers MD [Primary Care Provider] - Stand Alone Forms: Work/School Release IP
[2024-10-08] MEDS: cefTRIAXone 1 GM VIAL (23:48)
[2024-10-08] MEDS: LIDOCAINE 1% LOCAL INJ 10 ML VIAL (23:48)
--- OUTSIDE RECORDS SUMMARY | 2024-10-08 23:55 | XMS_ITS | Clinical Summary ---
Author Organization [facility] Address [address] [place] [address] Care Team Providers Care Nursing Faculty Name Role Phone Marisol Bradley MD Primary Care Provider [phone] Source Comments [facility],non-owned Affiliates and Associated Physician Practices is amultiple site organization consisting of ambulatory clinics and hospital sitesin [place], [place], [place] and [place]. This disclosure is being madepursuant to the Care Everywhere program and may not contain all information available regarding this patient. Last updated 18.[facility] Allergies No known active allergies Medications * [...] patient's age to complete this topic Insurance [facility] Care Teams Nursing Faculty Relationship Specialty Start Date End Date Marisol Bradley MD [address] [place] [phone] PCP - General Pediatrics 08/03/16
--- OUTSIDE RECORDS SUMMARY | 2024-10-08 23:55 | XMS_ITS | Referral Summary ---
Author Organization [facility] [address] [facility] lt Address [address] [place] [address] Care Team Providers Care Plasma Processing Technician Name Role Phone Reynaldo Carlsno MD Primary Care Provider [phone] Encounters Date Type Department Care Team Description 07/18/2024 1:56 PM NUT FORMER - 07/18/2024 11:59 PM NUT FORMER Hospital Encounter [facility] Imaging and Radiology [address] [place] [address] Low back pain, unspecified back pain laterality, unspecified chronicity, unspecified whether sciatica present Discharge Disposition: Discharge to home or self care from Last 3 Months Allergies No known active allergies Medications etonogestreL (NEXPLANON) 68 mg implantIndications : Contraception 1 each (68 mg total) Nexplanon inserted 05-14-2021. Paid by insurance. Lot # [id number] exp 08-31-2023 Active citalopram (CeleXA) 20 mg [...] Wear sunscreen/protective clothing when outdoors. -following with orthopaedic surgeon annually -STD testing ordered today Generalized anxiety [...] card. Assessment & Plan (06/24/2022 2:59 PM NUT FORMER): Declines STD rto next year for complete exam. BMI 23.0-23.9, adult 01/15/2021 Assessment & Plan (02/24/2024 11:30 AM CDT): BMI is appropriate for patient Assessment & Plan (01/15/2021 12:25 PM CDT): Discussed healthy diet and importance of regular physical activity. BMI is acceptable for this patient. control counseling 01/14/2021 Overview (05/14/2021): nexplanon 04/2021 Due out 04/2024 Assessment & Plan (06/24/2022 2:56 PM NUT FORMER): Some irregular bleeding Will follow. Assessment & Plan (06/19/2021 1:18 PM NUT FORMER): Arm is well healed She will follow the bleeding for another week or so and call me with the results. Assessment & Plan (05/14/2021 12:08 PM NUT FORMER): The patient comes today desiring contraception. The [...] protect against STD's. Given referral today to HYDRAULIC SPINNER. LMP 01/12/21, will restart OCP in the [...] exercises every other day with father at [place]. Encounter for control pills maintenance 07/31/19 20 [...] on file Legal Sex Female 11:09 AM NUT FORMER Gender Identity Not on file Sexual Orientation Not on file Occupation Industry Job Start Date Job End Date student Not on file Not on file Not on file Last Filed Vital Signs Vital Sign Reading Time Taken Comments Blood Pressure 116/80 05/09/2024 3:56 PM NUT FORMER Pulse 70 02/24/2024 10:51 AM CDT Temperature 36.6 C (97.9 F) 02/24/2024 10:51 AM CDT Respiratory Rate 16 01/07/2023 9:42 AM CDT Oxygen Saturation 99% 02/24/2024 10: 51 AM CDT Inhaled Oxygen Concentration - - Weight 65.6 kg (144 lb 11.2 oz) 05/09/2024 3:56 PM NUT FORMER Height 165.1 cm (5' 5 ) 05/09/2024 3:56 PM NUT FORMER Body Mass Index 24.08 05/09/2024 3:56 PM NUT FORMER Plan of Treatment Not on file Procedures Procedure Name Priority Date/Time Associated Diagnosis Comments MRI LUMBAR SPINE WO CONTRAST Schedule Routine, Read Routine (OP Routine) 07/18/2024 3:43 PM NUT FORMER Low back pain, unspecified back pain laterality, unspecified chronicity, unspecified whether sciatica present N. GONORRHOEAE/C. TRACHOMATIS AMPLIFICATION Routine 02/24/2024 4:00 PM CDT Routine screening for STI (sexually transmitted infection) PAP, REFLEX HPV Routine 07/01/2023 2:55 PM NUT FORMER Well woman exam from Last 3 Months or Most Recently Relevant to Health Maintenance Results * MRI Lumbar Spine WO Contrast (07/18/2024 3:43 PM NUT FORMER) Anatomical Region Laterality Modality Spine N/A Magnetic Resonan ce 07/18/2024 4:11 PM NUT FORMER Impressions 07/18/2024 9:57 PM NUT FORMER Moderate left central protrusion and annular fissure at L5-S1 with mild mass effect on the left S1 root. Electronically signed by: Brittny Muniz M.D. Narrative 07/18/2024 9:57 PM NUT FORMER Examination: MRI LUMBAR SPINE WO CONTRAST Date: [...] 4:00 PM CDT) C. trachomatis Not Detected [facility] Comment:Testing performed by : [facility], [address] [place]., [address] N. gonorrhoeae Not Detected DYANA KAY Comment: Interpretive Data This assay detects Chlamydia trachomatis and Neisseria gonorrhoeae by nucleic acid amplification testing (NAAT). This assay has been cleared by the [place] Food and Drug administration. The performance characteristics of this test have been verified by the [facility] Molecular Infectious Disease laboratory. The performance characteristics of this test have not been evaluated in individuals less than 14 years of age. Current Interpretive Data was last revised on 2023. Testing performed by: [facility], [address] [place]., [address] Urine (None) 02/24/2024 4:00 PM CDT 02/25/2024 1:35 PM CDT Petra Castillo RESEARCH NUTRITIONIST LAB MICROBIOLOGY - GENERAL ORDERABLES Final Result Performing Organization Address City/[facility]/ZIP Co de Phone Number DYANA KAY [address] [place] [address] [facility] * Pap, reflex HPV (07/01/2023 2:55 PM NUT FORMER) CLINICAL INFORMATION: Mya Ornelas Comment:None given LMP [...] has been evaluated with computer assisted technology. Brass Pourer [facility] st Manjeet Ornelas Comment: BES, CT(ASCP) CT screening location: [place] [address] [place] [address] Comment Mya Ornelas Comment: EXPLANATORY NOTE: The [...] clinical information. Thin prep 07/01/2023 2:55 PM NUT FORMER 07/02/2023 8:22 AM NUT FORMER Almaz Clark RESEARCH NUTRITIONIST LAB CYTOLOGY ORDERABLES Fin al Result Performing Organization Address [facility]/ZIP Co de Phone Number MYA [facility] DesignWineBeulahS[facility] [address] [phone] from Last 3 Months or Most Recently Relevant to Health Maintenance Insurance [facility] Care Teams Plasma Processing Technician Relationship Specialty Start Date End Date Reynaldo Carlson MD [address] [place] [address] PCP - General Family Medicine 04/21/18
--- OUTSIDE RECORDS SUMMARY | 2024-10-08 23:56 | XMS_ITS | Clinical Summary ---
Author Organization [facility] [address] [facility] lt Address [address] [place] [address] Care Team Providers Care Warp Knit Operator Name Role Phone Reynaldo Carlson MD Primary Care Provider [phone] Allergies No known active allergies Medications etonogestreL (NEXPLANON) 68 mg implantIndications : Contraception 1 each (68 mg total) Nexplanon inserted 05-14-2021. Paid by insurance. Lot # [id number] exp 08-31-2023 Active citalopram (CeleXA) 20 mg [...] Wear sunscreen/protective clothing when outdoors. -following with camera repairer annually -STD testing ordered today Generalized anxiety [...] card. Assessment & Plan (06/24/2022 2:59 PM FOXPRO DEVELOPER): Declines STD rto next year for complete exam. BMI 23.0-23.9, adult 01/15/2021 Assessment & Plan (02/24/2024 11:30 AM CDT): BMI is appropriate for patient Assessment & Plan (01/15/2021 12:25 PM CDT): Discussed healthy diet and importance of regular physical activity. BMI is acceptable for this patient. control counseling 01/14/2021 Overview (05/14/2021): nexplanon 04/2021 Due out 04/2024 Assessment & Plan (06/24/2022 2:56 PM FOXPRO DEVELOPER): Some irregular bleeding Will follow. Assessment & Plan (06/19/2021 1:18 PM FOXPRO DEVELOPER): Arm is well healed She will follow the bleeding for another week or so and call me with the results. Assessment & Plan (05/14/2021 12:08 PM FOXPRO DEVELOPER): The patient comes today desiring contraception. The [...] protect against STD's. Given referral today to PAIRER SUBSTANDARD. LMP 01/12/21, will restart OCP in the [...] exercises every other day with father at [place]. Encounter for control pills maintenance 07/31/19 20 [...] Department Care Team Description 07/18/2024 1:56 PM FOXPRO DEVELOPER - 07/18/2024 11:59 PM FOXPRO DEVELOPER Hospital Encounter [facility] Imaging and Radiology [address] [place] [address] Low back pain, unspecified back pain laterality, [...] 1 Other no colon, breas t or camera repairer cancer no change 06/24/22 cmt Other 2 [...] on file Legal Sex Female 11:09 AM FOXPRO DEVELOPER Gender Identity Not on file Sexual Orientation [...] Comments Blood Pressure 116/80 05/09/2024 3:56 PM FOXPRO DEVELOPER Pulse 70 02/24/2024 10:51 AM CDT Temperature 36.6 C (97.9 F) 02/24/2024 10:51 AM CDT Respiratory Rate 16 01/07/2023 9:42 AM CDT Oxygen Saturation 99% 02/24/2024 10: 51 AM CDT Inhaled Oxygen Concentration - - Weight 65.6 kg (144 lb 11.2 oz) 05/09/2024 3:56 PM FOXPRO DEVELOPER Height 165.1 cm (5' 5 ) 05/09/2024 3:56 PM FOXPRO DEVELOPER Body Mass Index 24.08 05/09/2024 3:56 PM FOXPRO DEVELOPER Plan of Treatment Health Maintenance Due Date [...] Read Routine (OP Routine) 07/18/2024 3:43 PM FOXPRO DEVELOPER Low back pain, unspecified back pain laterality, unspecified chronicity, unspecified whether sciatica present N. GONORRHOEAE/C. TRACHOMATIS AMPLIFICATION Routine 02/24/2024 4:00 PM CDT Routine screening for STI (sexually transmitted infection) PAP, REFLEX HPV Routine 07/01/2023 2:55 PM FOXPRO DEVELOPER Well woman exam from Last 3 Months or Most Recently Relevant to Health Maintenance Results * MRI Lumbar Spine WO Contrast (07/18/2024 3:43 PM FOXPRO DEVELOPER) Anatomical Region Laterality Modality Spine N/A Magnetic Resonan ce 07/18/2024 4:11 PM FOXPRO DEVELOPER Impressions 07/18/2024 9:57 PM FOXPRO DEVELOPER Moderate left central protrusion and annular fissure at L5-S1 with mild mass effect on the left S1 root. Electronically signed by: Brittny Muniz M.D. Narrative 07/18/2024 9:57 PM FOXPRO DEVELOPER Examination: MRI LUMBAR SPINE WO CONTRAST Date: [...] 4:00 PM CDT) C. trachomatis Not Detected [facility] Comment:Testing performed by : [facility], [address] [place] [address] N. gonorrhoeae Not Detected DYANA KAY Comment: Interpretive Data This assay detects Chlamydia trachomatis and Neisseria gonorrhoeae by nucleic acid amplification testing (NAAT). This assay has been cleared by the [place] Food and Drug administration. The performance characteristics of this test have been verified by the [facility] Molecular Infectious Disease laboratory. The performance characteristics of this test have not been evaluated in individuals less than 14 years of age. Current Interpretive Data was last revised on 2023. Testing performed by: [facility], [address] [place] [address] Urine (None) 02/24/2024 4:00 PM CDT 02/25/2024 1:35 PM CDT us Petra Castillo SOLUTIONS ARCHITECT CONSULTANT LAB MICROBIOLOGY - GENERAL ORDERABLES Final Result DYANA [id number] Department of Laboratories [place], [place] [id number] [facility] * Pap, reflex HPV (07/01/2023 2:55 PM FOXPRO DEVELOPER) CLINICAL INFORMATION: Lisandra [facility] Ret[facility] SolutionsCharlie Ornelas Comment:None given LMP Lisandra SeraCharlie Ornelas Comment:NONE GIVEN Previous Pap Lisandra DiagnosticshCarlie Ornelas Comment:NONE GIVEN Prev. Bx Lisandra SeraCharlie Ornelas Comment:NONE GIVEN SOURCE: Lisandra [facility] SolutionsCharlie Ornelas Comment:Cervix, Endocervix Pap, specimen adequacy Lisandra [facility] SolutionsCharlie Ornelas Comment: Satisfactory for evaluation. Endocervical/transformation zone component present. Age and/or menstrual status not provided HPV interp Lisandra Ornelas Comment: Cytology Results: Negative for intraepithelial lesion or malignancy. COMMENTS Lisandra [facility] Retirement SolutionsCharlie Ornelas Comment: This Pap test has been evaluated with computer assisted technology. Seo Associate [facility] A[facility] Retirement SolutionsCharlie Ornelas Comment: BES, CT(ASCP) CT screening location: [place] [address] [place] [address] Comment Lisandra Aria Retirement SolutionsCharlie Ornelas Comment: EXPLANATORY NOTE: The Pap is [...] clinical information. Thin prep 07/01/2023 2:55 PM FOXPRO DEVELOPER 07/02/2023 8:22 AM FOXPRO DEVELOPER Almaz Clark SOLUTIONS ARCHITECT CONSULTANT LAB CYTOLOGY ORDERABLES Fin al Result Performing Organization Address City/[facility]/ZIP Co de Phone Number [facility] [address] [place] [address] from Last 3 Months or Most Recently Relevant to Health Maintenance Insurance [facility] Care Teams Warp Knit Operator Relationship Specialty Start Date End Date Reynaldo Carlson MD [address] [place] [address] PCP - General Family Medicine 04/21/18
[2024-10-09 00:09] VITALS: BP 125/88; PULSE 73; RESP 16; TEMP 36.7; O2SAT 100
== END 2024-10-09 00:10 | disposition home or self-care (01) ==
LOC: ANHED 23:54
PROVIDERS: Emergency Medicine; Emergency Provider Physician Assistant; PCP Family Medicine
DX: N12 Tubulo-interstitial nephritis, not specified as acute or chronic (principal); N13.30 Unspecified hydronephrosis
CPT/HCPCS: 36415; 74176; 80053; 81001; 81003; 81025; 83690; 85025; 87086; 87186; 96374; 99284; A9270; J0696; J2003

== ENCOUNTER 2024-10-31 09:45 | Outpatient (CLI) | payer OTHER, SELFPAY ==
[2024-10-31 10:18] LABS: Hematocrit 39.8 % (37.0-47.0); Hemoglobin 12.8 g/dL (12.0-15.0); Mean Corpuscular HGB Conc 32.2 g/dl (32-36); Mean Corpuscular Hemoglobin 28.3 pg (26-34); Mean Corpuscular Volume 87.9 fl (80-100); Mean Platelet Volume 8.9 fl (7.4-10.4); Platelet Count Result 363 k/mm3 (150-375); Red Blood Count 4.53 M/mm3 (4.2-5.4); White Blood Count 5.4 K/mm3 (4.5-10.0)
[2024-10-31 10:26] LABS: Add Urine Microscopic? YES; Appearance Urine Cloudy (Clear); Bacteria Urine None Seen /hpf; Bilirubin Urine Negative (Negative); Blood Urine Negative (Negative); Color Urine Yellow (Yellow); Glucose Urine UA Negative (Negative); Ketones Urine Negative (Negative); Leukocyte Esterase Ur Negative LEU/UL (Negative); Nitrate Urine Negative (Negative); Non Pathogenic Casts 0-2; Protein Urine Negative (Negative); RBC Urine 0-2 /hpf (0-2); Specific Grav Ur 1.013 (1.001-1.035); Squamous Epithelial Cell Urine None Seen /hpf (Few); Urobilinogen Urine 0.2 mg/dL (<2.0); WBC Urine 0-5 /hpf (0-3)
== END 2024-10-31 09:46 | disposition home or self-care (01) ==
LOC: ANHLAB 09:48
PROVIDERS: PCP Family Medicine; Visit Provider Nurse Practitioner Family
DX: N39.0 Urinary tract infection, site not specified (principal); D72.829 Elevated white blood cell count, unspecified
CPT/HCPCS: 36415; 81001; 85027

== ENCOUNTER 2024-12-12 10:59 | Outpatient (CLI) | payer OTHER, SELFPAY ==
--- NOTE | ~2024-12-12 | US_ITS ---
US retroperitoneal comp 12/12/2024 11:44 Procedure: Realtime transabdominal ultrasound of the kidneys and bladder. Indication: Left hydronephrosis. Comparison: No prior studies for comparison. Findings: Renal echotexture is normal bilaterally without contour deforming mass or renal calculus. M ild left hydronephrosis. The right kidney measures 11 cm and left kidney measures 9.1 cm. Bladder wi thin normal limits. Impression: 1: Mild left hydronephrosis. Reviewed, dictated and finalized at location A. Impression: 1: Mild left hydronephrosis.
== END 2024-12-12 11:00 | disposition home or self-care (01) ==
PROVIDERS: PCP Family Medicine; Visit Provider Urology
DX: N13.30 Unspecified hydronephrosis (principal)
CPT/HCPCS: 76770

== ENCOUNTER 2025-03-21 10:59 | Outpatient (CLI) | payer OTHER, SELFPAY ==
--- NOTE | ~2025-03-21 | US_ITS ---
Examination: Ultrasound of the retroperitoneum including kidneys and bladder. Clinical History: hydronephrosis, left . Comparison: Renal ultrasound 12/12/2024 CT abdomen and pelvis 10/08/2024 Findings: Right kidney: 11 cm. Normal echogenicity. No collecting system dilatation. No shadowing calculi. Left kidney: 11 cm. Normal echogenicity. No collecting system dilatation. No shadowing calculi. Urinary bladder: No wall thickening or focal abnormality. IMPRESSION: 1. No hydronephrosis. Reviewed, dictated and finalized at location R. IMPRESSION: 1. No hydronephrosis.
== END 2025-03-21 11:00 | disposition home or self-care (01) ==
PROVIDERS: PCP Family Medicine; Visit Provider Physician Assistant
DX: N13.30 Unspecified hydronephrosis (principal)
CPT/HCPCS: 76770